=== PATIENT | male | born 1940 | race Caucasian/White ===

== ENCOUNTER 2022-11-24 | Outpatient (REF) | payer MEDICARE, SELFPAY | END 2022-11-24 00:01 | disposition home or self-care (01) | LOC: CF | PROVIDERS: Visit Provider Nurse Practitioner Family | DX: J44.9 Chronic obstructive pulmonary disease, unspecified (principal); I48.91 Unspecified atrial fibrillation; R06.09 Other forms of dyspnea; Z85.118 Personal history of other malignant neoplasm of bronchus and lung; Z79.01 Long term (current) use of anticoagulants; Z87.891 Personal history of nicotine dependence; Z79.899 Other long term (current) drug therapy | CPT/HCPCS: 99202 ==

== ENCOUNTER 2022-11-24 08:37 | Outpatient (AMB) | payer MEDICARE, SELFPAY ==
--- NOTE | 2022-11-24 08:40 | MHC.OFFVIS ---
Intake Vital Signs 11/24/22 08:44 Height 5 ft 9 in Weight 185 lb BMI 27.3 BP 134/68 Blood Pressure Location Rt brachial Position Sitting Pulse 82 Pulse Source Pulse Oximeter Pulse Oximetry (%) 97 Oxygen Delivery Method Room Air Intake Visit Reasons: Cough Air Transportation Provider Required: No Information Interpreted: non-clinical & clinical Food Service Supervisor: Food Service Supervisor offered & declined Accompanied by: Self / Same As Patient Allergies No Known Allergies Allergy (Verified 11/24/22 08:47) Medication List - Last Reconciled 11/24/22 by Mechelle Rudd LPN apixaban (Eliquis) 5 mg PO BID atorvastatin 20 mg PO DAILY cetirizine 10 mg PO DAILY PRN donepezil 10 mg PO BEDTIME fluticasone propionate 50 mcg/actuation 1 spray intranasal Q12H PRN furosemide 20 mg PO DAILY loratadine (Claritin) 10 mg PO DAILY metoprolol tartrate 50 mg PO BID HPI Cough HPI Details Alvin is a pleasant 82 year old male, former smoker with approximately 120+ pack year history, quit 30 years ago, with underlying history of COPD, 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 He was referred by PCP for pulmonary evaluation. He reports dyspnea with moderate exertion, wheezing, and productive cough with white sputum. He also reports that his hears him wheezing. He is not on any maintenance inhalers, only using intranasal sprays for allergic rhinitis. He denies any childhood asthma and is unsure of family history regarding lung conditions. 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 He denies any recent PFT. [facility] Social History (Updated 11/24/22 @ 08:48 by Mechelle Rudd LPN) Patient Tobacco Use Status: Former Tobacco user Tobacco use type: Cigarette Cigarette Packs Per Day: 3 Years Smoked: 40 Smoked in Last 30 Days: No Review of Systems Const Denies chills, Denies excessive sweating, Denies fever(s), Denies headache(s) and Denies night sweats Eyes Denies dry eyes, Denies irritation and Denies itchy eyes ENT Reports Normal hearing present, Denies headache(s), Denies post nasal drip and Denies sore throat Card Denies chest pain, Denies chest pain at rest, Denies chest pain with activity, Denies claudication, Denies leg edema, Denies orthopnea and Denies paroxysmal nocturnal dyspnea Resp Denies chest congestion, Denies excessive phlegm production, Denies pain on inspiration, Denies pain with cough and Denies stridor Musc Denies myalgias Neuro Reports Normal hearing present and Denies headache(s) Endo Denies excessive sweating Barry/Lymph Denies lymphadenopathy Aller/Immun Denies itchy eyes Physical Exam Vital Signs: Last Vital Signs Pulse 82 11/24/22 08:44 BP 134/68 11/24/22 08:44 Pulse Ox 97 11/24/22 08:44 Oxygen Delivery Method Room Air 11/24/22 08:44 BMI result Body Mass Index 27.3 Const General: cooperative, healthy appearing, comfortable, no acute distress, well developed and alert Limitations: no limitations HEENT Head: Yes normal to inspection, Yes normocephalic and Yes atraumatic Ears: hearing grossly normal bilaterally and external ears normal Eyes General: appearance normal, both eyes and all related structures Eyelids: Yes eyelids normal Sclerae: sclerae normal EOM: EOMs intact bilaterally Neck Neck: Yes normal visual inspection and Yes no lymphadenopathy Lymphatic: no lymphadenopathy noted Chest Chest palpation & inspection: normal inspection of the chest Resp Effort & Inspection: normal respiratory effort, able to speak in complete sentences, no audible wheezes, no cough, no stridor, not tachypneic, no tripod positioning and no use of accessory muscles Auscultation: no wheezes and diminished lung sounds Cardio Jugular venous distension: no JVD Rate: regular rate Skin Other: warm, dry General skin exam: no rashes or lesions noted Neuro Cranial nerves: Yes Normal hearing present Cognition (Neuro): normal cognition Gait exam (Neuro): Normal gait present Extrem General: Yes normal to inspection, Yes capillary refill normal, Yes no clubbing, cyanosis or edema and Yes no pedal edema Psych Appearance: grossly normal and well kempt Speech and movement: Normal speech and movement present and Clear speech present Affect: normal affect Attitude: cooperative Thought process: Normal thought process present Thought content: Normal thought content present Insight: Good insight present (Psych) Judgement: Good judgement present (Psych) Assessment & Plan Assessment & Plan (1) COPD (chronic obstructive pulmonary disease): Code(s): J44.9 - Chronic obstructive pulmonary disease, unspecified (2) Dyspnea on exertion: Code(s): R06.09 - Other forms of dyspnea (3) 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 Patient poor historian. Will schedule PFT to thoroughly assess and empirically trial Breo. Patient is aware to contact the office if inhaler is not approved by insurance. Inhaler technique and importance of oral hygiene reviewed. Will also schedule chest CT with prior history of lung cancer. All questions were answered and patient is in agreement of plan. Will follow up to review results and response to Breo. 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
[2022-11-24 08:44] VITALS: BP 134/68; PULSE 82; O2SAT 97; BMI 27.3
== END 2022-11-24 10:09 | disposition home or self-care (01) ==
LOC: HO.HPSW 08:37
PROVIDERS: PCP Nurse Practitioner Primary Care; Referring Provider Nurse Practitioner Primary Care; Visit Provider Nurse Practitioner Family
DX: J44.9 Chronic obstructive pulmonary disease, unspecified (principal); R06.09 Other forms of dyspnea; C34.12 Malignant neoplasm of upper lobe, left bronchus or lung
CPT/HCPCS: 99202; 99204

== ENCOUNTER 2022-12-26 08:29 | Outpatient (REF) | payer MEDICARE, SELFPAY ==
--- NOTE | ~2022-12-26 | CT_ITS ---
EXAMINATION: CT CHEST WITHOUT CONTRAST CLINICAL INFORMATION: Neoplasm of left upper lobe. COMPARISON: None available. TECHNIQUE: Multidetector volumetric CT imaging of the chest was done. Axial MIP volume rendering provided. Sagittal and coronal reformatted images were obtained. This CT examination was performed using dose optimization techniques as appropriate, variously including the following: *Automated exposure control *Adjustment of mA and/or kV according to patient size (this includes techniques or standardized protocols for targeted exams where dose is matched to indication/reason for exam; i.e. extremities or head) *Use of iterative reconstruction technique DLP: 154 mGy-cm FINDINGS: MEMBER SERVICES REPRESENTATIVE: The lungs are well-expanded and grossly clear. There is blunting of the left lateral costophrenic angle. There is left base scar/subsegmental atelectasis. LUNGS: There has been a prior left upper lobectomy. There are very mild paraseptal emphysematous changes, most pronounced at the right apex. There is right apical pleural and parenchymal scarring. There is left basilar pleural and parenchymal scarring. There is a benign, calcified granuloma seen within the posterior segment of the right upper lobe. No noncalcified nodule, mass, infiltrate or groundglass opacity is seen. There is no generalized increase in peripheral interlobular septal markings. No generalized small airway thickening is seen. The central airways appear patent. MEDIASTINUM: The thyroid is unremarkable. There is no thoracic aortic aneurysm. There are moderate atherosclerotic calcifications of the thoracic aortic arch. Within the prevascular region (4:14), a 1.3 x 0.8 cm lymph node is seen. There are shotty calcified bilateral hilar lymph nodes, consistent with chronic granulomatous disease. No sizable mediastinal or bilateral hilar lymphadenopathy is seen. CORONARY ARTERY CALCIFICATION: Moderate. PLEURA: There are small bilateral pleural effusions. No pleural mass or thickening. AXILLA: No lymphadenopathy. UPPER ABDOMEN: There are upper abdominal postoperative changes. A diminutive spleen or residual splenule is incidentally noted. The adrenal glands are unremarkable. OSSEOUS STRUCTURES: There is multi-level marked thoracolumbar anterior spondylosis, with an appearance suggesting DISH (diffuse idiopathic skeletal hyperostosis). No acute or aggressive osseous abnormality is seen. CT/CT chest wo IV con IMPRESSION: There are postoperative changes consistent with a prior left upper lobectomy. No thoracic metastasis or lymphadenopathy is seen. There are findings consistent with chronic granulomatous disease and paraseptal emphysema. There are small bilateral pleural effusions. No aggressive osseous lesion is seen. Fleischner guidelines were followed.
== END 2022-12-26 08:30 | disposition home or self-care (01) ==
LOC: HO.CT 08:29
PROVIDERS: PCP Internal Medicine; Visit Provider Nurse Practitioner Family
DX: C34.12 Malignant neoplasm of upper lobe, left bronchus or lung (principal)
CPT/HCPCS: 71250

== ENCOUNTER 2023-01-02 07:56 | Outpatient (REF) | payer MEDICARE, SELFPAY ==
--- NOTE | 2023-01-02 08:44 | PFT_ITS ---
Forced vital capacity 93%. FEV1 67%. FEV1/FVC ratio is 53. [id number] 26% and MVV 54%. Post bronchodilator therapy, there is no significant change. Lung volumes; total lung capacity 89%, residual volume 99%. Diffusion capacity 88%. CONCLUSION: Obstructive airway disorder, moderately severe. No significant response to bronchodilator therapy. Clinical correlation recommended. Cordell Aviles MD MSB/MODL / [phone]
== END 2023-01-02 07:57 | disposition home or self-care (01) ==
LOC: HO.RESP 07:56
PROVIDERS: PCP Internal Medicine; Visit Provider Nurse Practitioner Family
DX: J44.9 Chronic obstructive pulmonary disease, unspecified (principal)
CPT/HCPCS: 94010; 94727; 94729

== ENCOUNTER → 2023-01-02 08:44 | Outpatient (BNV) | payer MEDICARE, SELFPAY | PROVIDERS: PCP Internal Medicine; Visit Provider Internal Medicine | DX: J44.9 Chronic obstructive pulmonary disease, unspecified (principal) | CPT/HCPCS: 94060; 94727; 94729 ==

== ENCOUNTER 2023-01-14 13:54 | Outpatient (AMB) | payer MEDICARE, SELFPAY ==
[2023-01-14 13:58] VITALS: BP 132/72; PULSE 78; O2SAT 97; BMI 27.8
--- NOTE | 2023-01-14 13:58 | A.OFFVIS_ITS ---
Intake Vital Signs 3 01/14/23 13:58 Height 5 ft 9 in Weight 188 lb BMI 27.8 BP 132/72 Blood Pressure Location Rt brachial Position Sitting Pulse 78 Pulse Source Pulse Oximeter Pulse Oximetry (%) 97 Oxygen Delivery Method Room Air Intake Visit Reasons: follow up on pft Supervisor Lending Activities Required: No Client Support Associate: Client Support Associate offered & declined Accompanied by: Self / Same As Patient Allergies No Known Allergies Allergy (Verified 01/14/23 14:05) Medication List - Last Reconciled 01/14/23 by Mechelle Rudd LPN apixaban (Eliquis) 5 mg PO BID atorvastatin 20 mg PO DAILY cetirizine 10 mg PO DAILY PRN donepezil 10 mg PO BEDTIME fluticasone furoate-vilanterol 100-25 mcg/dose (Breo Ellipta) 1 inh inhalation DAILY fluticasone propionate 50 mcg/actuation 1 spray intranasal Q12H PRN furosemide 20 mg PO DAILY loratadine (Claritin) 10 mg PO DAILY metoprolol tartrate 50 mg PO BID HPI follow up on pft 2 HPI0 Details Alvin is a pleasant 82 year old male, former smoker with approximately 120+ pack year history, quit 30 years ago, with underlying history of COPD, 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 Today he presents to review chest CT, PFT and response to Breo. He continues to report suboptimal control with Breo, although has had improvements in dyspnea and wheezing. He also continues to report persistent rhinitis. [facility] Social History (Updated 01/14/23 @ 14:08 by Mechelle Rudd LPN) Patient Tobacco Use Status: Former Tobacco user Tobacco use type: Cigarette Cigarette Packs Per Day: 3 Years Smoked: 40 Smoked in Last 30 Days: No Review of Systems Const Denies chills, Denies excessive sweating, Denies fever(s), Denies headache(s) and Denies night sweats Eyes Denies dry eyes, Denies irritation and Denies itchy eyes ENT Reports Normal hearing present, Denies headache(s), Denies post nasal drip and Denies sore throat Card Denies chest pain, Denies chest pain at rest, Denies chest pain with activity, Denies claudication, Denies leg edema, Denies orthopnea and Denies paroxysmal nocturnal dyspnea Resp Denies chest congestion, Denies excessive phlegm production, Denies pain on inspiration, Denies pain with cough and Denies stridor Musc Denies myalgias Neuro Reports Normal hearing present and Denies headache(s) Endo Denies excessive sweating Barry/Lymph Denies lymphadenopathy Aller/Immun Denies itchy eyes Physical Exam Vital Signs: Last Vital Signs Pulse 78 01/14/23 13:58 BP 132/72 01/14/23 13:58 Pulse Ox 97 01/14/23 13:58 Oxygen Delivery Method Room Air 01/14/23 13:58 BMI result Body Mass Index 27.8 Const General: cooperative, healthy appearing, comfortable, no acute distress, well developed and alert HEENT Head: Yes normal to inspection, Yes normocephalic and Yes atraumatic Ears: hearing grossly normal bilaterally and external ears normal Eyes General: appearance normal, both eyes and all related structures Eyelids: Yes eyelids normal Sclerae: sclerae normal EOM: EOMs intact bilaterally Neck Neck: Yes normal visual inspection and Yes no lymphadenopathy Lymphatic: no lymphadenopathy noted Chest Chest palpation & inspection: normal inspection of the chest Resp Effort & Inspection: normal respiratory effort, able to speak in complete sentences, no audible wheezes, no cough, no stridor, not tachypneic, no tripod positioning and no use of accessory muscles Auscultation: no wheezes and diminished lung sounds Cardio Jugular venous distension: no JVD Rate: regular rate Skin Other: warm, dry General skin exam: no rashes or lesions noted Neuro Cranial nerves: Yes Normal hearing present Cognition (Neuro): normal cognition Gait exam (Neuro): Normal gait present Extrem General: Yes normal to inspection, Yes capillary refill normal, Yes no clubbing, cyanosis or edema and Yes no pedal edema Psych Appearance: grossly normal and well kempt Speech and movement: Normal speech and movement present and Clear speech present Affect: normal affect Attitude: cooperative Thought process: Normal thought process present Thought content: Normal thought content present Insight: Good insight present (Psych) Judgement: Good judgement present (Psych) Results Reviewed Results Reviewed: [address] [address] [address] Scan Report Signed Patient: Alvin Aguirre MR#: [id number] : 1940 Acct:[id number] Age/Sex: 82 / M ADM Date: 12/26/22 Loc: HO.CT Attending Dr: Angie Hansen NP Ordering Physician: Angie Hansen NP Date of Service: 12/26/22 Procedure(s): CT chest wo IV con Accession Number(s): [id number] cc: Edd Hollingsworth MD; Angie Hansen NP~ EXAMINATION: CT CHEST WITHOUT CONTRAST CLINICAL INFORMATION: Neoplasm of left upper lobe. COMPARISON: None available. TECHNIQUE: Multidetector volumetric CT imaging of the chest was done. Axial MIP volume rendering provided. Sagittal and coronal reformatted images were obtained. This CT examination was performed using dose optimization techniques as appropriate, variously including the following: *Automated exposure control *Adjustment of mA and/or kV according to patient size (this includes techniques or standardized protocols for targeted exams where dose is matched to indication/reason for exam; i.e. extremities or head) *Use of iterative reconstruction technique DLP: 154 mGy-cm FINDINGS: MEDICAL LEADER: The lungs are well-expanded and grossly clear. There is blunting of the left lateral costophrenic angle. There is left base scar/subsegmental atelectasis. LUNGS: There has been a prior left upper lobectomy. There are very mild paraseptal emphysematous changes, most pronounced at the right apex. There is right apical pleural and parenchymal scarring. There is left basilar pleural and parenchymal scarring. There is a benign, calcified granuloma seen within the posterior segment of the right upper lobe. No noncalcified nodule, mass, infiltrate or groundglass opacity is seen. There is no generalized increase in peripheral interlobular septal markings. No generalized small airway thickening is seen. The central airways appear patent. MEDIASTINUM: The thyroid is unremarkable. There is no thoracic aortic aneurysm. There are moderate atherosclerotic calcifications of the thoracic aortic arch. Within the prevascular region (4:14), a 1.3 x 0.8 cm lymph node is seen. There are shotty calcified bilateral hilar lymph nodes, consistent with chronic granulomatous disease. No sizable mediastinal or bilateral hilar lymphadenopathy is seen. CORONARY ARTERY CALCIFICATION: Moderate. PLEURA: There are small bilateral pleural effusions. No pleural mass or thickening. AXILLA: No lymphadenopathy. UPPER ABDOMEN: There are upper abdominal postoperative changes. A diminutive spleen or residual splenule is incidentally noted. The adrenal glands are unremarkable. OSSEOUS STRUCTURES: There is multi-level marked thoracolumbar anterior spondylosis, with an appearance suggesting DISH (diffuse idiopathic skeletal hyperostosis). No acute or aggressive osseous abnormality is seen. CT/CT chest wo IV con IMPRESSION: There are postoperative changes consistent with a prior left upper lobectomy. No thoracic metastasis or lymphadenopathy is seen. There are findings consistent with chronic granulomatous disease and paraseptal emphysema. There are small bilateral pleural effusions. No aggressive osseous lesion is seen. Fleischner guidelines were followed. 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 Reviewed PFT which revealed moderate to sever obstructive defect without significant response to bronchodilator. DLCO and lung volumes within normal limits. Patient had notable improvements with Breo but symptoms of dyspnea persist. Will switch to Trelegy. He also noted significant rhinitis, will trial ipratropium. All questions were answered and patient is in agreement of plan. Will follow up in three months or sooner if needed. 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
== END 2023-01-14 14:32 | disposition home or self-care (01) ==
LOC: HO.HPSW 13:54
PROVIDERS: PCP Internal Medicine; Visit Provider Nurse Practitioner Family
DX: J44.9 Chronic obstructive pulmonary disease, unspecified (principal); R06.09 Other forms of dyspnea; C34.12 Malignant neoplasm of upper lobe, left bronchus or lung; J30.9 Allergic rhinitis, unspecified
CPT/HCPCS: 99214

== ENCOUNTER → 2023-01-14 13:54 | Outpatient (BNVA) | payer MEDICARE, SELFPAY | PROVIDERS: PCP Internal Medicine; Visit Provider Nurse Practitioner Family | DX: J44.9 Chronic obstructive pulmonary disease, unspecified (principal); J30.9 Allergic rhinitis, unspecified; R06.09 Other forms of dyspnea; C34.12 Malignant neoplasm of upper lobe, left bronchus or lung | CPT/HCPCS: 99212 ==

== ENCOUNTER 2023-04-22 09:01 | Outpatient (AMB) | payer MEDICARE, SELFPAY ==
[2023-04-22 09:05] VITALS: BP 128/74; PULSE 92; O2SAT 97; BMI 27.0
--- NOTE | 2023-04-22 09:05 | A.OFFVIS_ITS ---
Intake Vital Signs 04/22/23 09:05 Height 5 ft 9 in Weight 183 lb BMI 27.0 BP 128/74 Blood Pressure Location Lt brachial Position Sitting Pulse 92 Pulse Source Pulse Oximeter Pulse Oximetry (%) 97 Oxygen Delivery Method Room Air Intake Visit Reasons: cough Cell Tuber Machine Required: No Life Skills Coach: Life Skills Coach offered & declined Accompanied by: Self / Same As Patient Allergies No Known Allergies Allergy (Verified 04/22/23 09:08) Medication List - Last Reconciled 04/22/23 by Mechelle Rudd LPN apixaban (Eliquis) 5 mg PO BID atorvastatin 20 mg PO DAILY cetirizine 10 mg PO DAILY PRN donepezil 10 mg PO BEDTIME fluticasone propionate 50 mcg/actuation 1 spray intranasal Q12H PRN aaztlzbuyht-ahictojni-kdvhdrxn 200-62.5-25 mcg (Trelegy Ellipta) 1 inh inhalation DAILY furosemide 20 mg PO DAILY ipratropium bromide 2 sprays intranasal BID loratadine (Claritin) 10 mg PO DAILY metoprolol tartrate 50 mg PO BID HPI cough HPI Details Alvin is a pleasant 82 year old male, former smoker with approximately 120+ pack year history, quit 30 years ago, with underlying history of COPD, 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 At the last visit, he was switched from Breo to Trelegy with significant improvement in symptoms. He denies overt dyspnea on exertion. He denies cough, wheezing or chest tightness. [facility], [facility] Social History (Updated 04/22/23 @ 09:09 by Mechelle Rudd LPN) Patient Tobacco Use Status: Former Tobacco user Tobacco use type: Cigarette Cigarette Packs Per Day: 3 Years Smoked: 40 Smoked in Last 30 Days: No Review of Systems Const Denies chills, Denies excessive sweating, Denies fever(s), Denies headache(s) and Denies night sweats Eyes Denies dry eyes ENT Reports Normal hearing present, Denies headache(s) and Denies sore throat Card Denies chest pain, Denies chest pain at rest, Denies chest pain with activity, Denies claudication, Denies leg edema, Denies orthopnea and Denies paroxysmal nocturnal dyspnea Resp Denies chest congestion, Denies excessive phlegm production, Denies pain on inspiration, Denies pain with cough and Denies stridor Musc Denies myalgias Neuro Reports Normal hearing present and Denies headache(s) Endo Denies excessive sweating Barry/Lymph Denies lymphadenopathy Physical Exam Vital Signs: Last Vital Signs Pulse 92 04/22/23 09:05 BP 128/74 04/22/23 09:05 Pulse Ox 97 04/22/23 09:05 Oxygen Delivery Method Room Air 04/22/23 09:05 BMI result Body Mass Index 27.0 Const General: cooperative, healthy appearing, comfortable, no acute distress, well developed and alert HEENT Head: Yes normal to inspection, Yes normocephalic and Yes atraumatic Ears: hearing grossly normal bilaterally and external ears normal Eyes General: appearance normal, both eyes and all related structures Eyelids: Yes eyelids normal Sclerae: sclerae normal EOM: EOMs intact bilaterally Neck Neck: Yes normal visual inspection and Yes no lymphadenopathy Lymphatic: no lymphadenopathy noted Chest Chest palpation & inspection: normal inspection of the chest Resp Effort & Inspection: normal respiratory effort, able to speak in complete sentences, no audible wheezes, no cough, no stridor, not tachypneic, no tripod positioning and no use of accessory muscles Auscultation: clear to auscultation bilaterally and no wheezes Cardio Jugular venous distension: no JVD Rate: regular rate Skin Other: warm, dry General skin exam: no rashes or lesions noted Neuro Cranial nerves: Yes Normal hearing present Cognition (Neuro): normal cognition Gait exam (Neuro): Normal gait present Extrem General: Yes normal to inspection, Yes capillary refill normal, Yes no clubbing, cyanosis or edema and Yes no pedal edema Psych Appearance: grossly normal and well kempt Speech and movement: Normal speech and movement present and Clear speech present Affect: normal affect Attitude: cooperative Thought process: Normal thought process present Thought content: Normal thought content present Insight: Good insight present (Psych) Judgement: Good judgement present (Psych) Assessment & Plan Assessment & Plan (1) COPD (chronic obstructive pulmonary disease): Code(s): J44.9 - Chronic obstructive pulmonary disease, unspecified (2) Dyspnea on exertion: Code(s): R06.09 - Other forms of dyspnea (3) 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 His main concern was allergic rhinitis and allergic conjunctivitis, advised to increase ipratropium for the next few weeks to BID, and see if symptoms improve. Also recommended trialing antihistamine eyedrops. Denies history of glaucoma. All questions were answered and patient is in agreement of plan. Will follow up in six months or sooner if needed. 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
== END 2023-04-22 09:23 | disposition home or self-care (01) ==
PROVIDERS: PCP Internal Medicine; Visit Provider Nurse Practitioner Family
DX: J44.9 Chronic obstructive pulmonary disease, unspecified (principal); R06.09 Other forms of dyspnea; C34.12 Malignant neoplasm of upper lobe, left bronchus or lung; J30.9 Allergic rhinitis, unspecified
CPT/HCPCS: 99213

== ENCOUNTER → 2023-04-22 09:01 | Outpatient (BNVA) | payer MEDICARE, SELFPAY | PROVIDERS: PCP Internal Medicine; Visit Provider Nurse Practitioner Family | DX: J44.9 Chronic obstructive pulmonary disease, unspecified (principal); J30.9 Allergic rhinitis, unspecified; C34.12 Malignant neoplasm of upper lobe, left bronchus or lung; R06.09 Other forms of dyspnea | CPT/HCPCS: 99212 ==

== ENCOUNTER 2023-08-04 14:45 | Outpatient (AMB) | payer MEDICARE, SELFPAY ==
[2023-08-04 14:51] VITALS: BP 102/56; PULSE 86; O2SAT 96; BMI 26.6
--- NOTE | 2023-08-04 14:51 | MHC.OFFVIS ---
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 He reports good control on Trelegy. Today he presents for an acute visit. He reports developing dyspnea on exertion, wheezing and productive cough with tenacious childs colored sputum for the past few days that is worsening. He denies any fevers, chills or sick contacts. [facility] Social History Patient Tobacco Use Status: Former Tobacco user Tobacco use type: Cigarette Cigarette Packs Per Day: 3 Years Smoked: 40 Review of Systems Const Denies chills, Denies excessive sweating, Denies fever(s), Denies headache(s) and Denies night sweats Eyes Denies dry eyes, Denies irritation and Denies itchy eyes ENT Reports Normal hearing present, Denies headache(s), Denies nasal congestion, Denies nasal discharge, Denies post nasal drip and Denies sore throat Card Denies chest pain, Denies chest pain at rest, Denies chest pain with activity, Denies claudication, Denies leg edema, Denies orthopnea and Denies paroxysmal nocturnal dyspnea Resp Denies excessive phlegm production, Denies pain on inspiration, Denies pain with cough and Denies stridor Musc Denies myalgias Neuro Reports Normal hearing present and Denies headache(s) Endo Denies excessive sweating Barry/Lymph Denies lymphadenopathy Aller/Immun Denies itchy eyes and Denies seasonal rhinorrhea Physical Exam Vital Signs: Last Vital Signs Pulse 86 08/04/23 14:51 BP 102/56 L 08/04/23 14:51 Pulse Ox 96 08/04/23 14:51 Oxygen Delivery Method Room Air 08/04/23 14:51 BMI result Body Mass Index 26.6 Const General: cooperative, healthy appearing, comfortable, no acute distress, well developed and alert Nutritional Appearance: obese Orientation/consciousness: patient oriented x3 Limitations: no limitations HEENT Head: Yes normal to inspection, Yes normocephalic and Yes atraumatic Ears: hearing grossly normal bilaterally and external ears normal Eyes General: appearance normal, both eyes and all related structures Eyelids: Yes eyelids normal Sclerae: sclerae normal EOM: EOMs intact bilaterally Neck Neck: Yes normal visual inspection and Yes no lymphadenopathy Lymphatic: no lymphadenopathy noted Chest Chest palpation & inspection: normal inspection of the chest Resp Other: diminished sounds throughout, improved with duoneb Effort & Inspection: normal respiratory effort, able to speak in complete sentences, no audible wheezes, Actively coughing Quality: wet, no stridor, not tachypneic, no tripod positioning and no use of accessory muscles Cardio Jugular venous distension: no JVD Rate: regular rate Rhythm: regular rhythm Skin Other: warm, dry General skin exam: no rashes or lesions noted Neuro General: patient oriented x3 Cranial nerves: Yes Normal hearing present Cognition (Neuro): normal cognition Gait exam (Neuro): Normal gait present Extrem General: Yes normal to inspection, Yes capillary refill normal, Yes no clubbing, cyanosis or edema and Yes no pedal edema Psych Appearance: grossly normal and well kempt Speech and movement: Normal speech and movement present and Clear speech present Affect: normal affect Attitude: cooperative Thought process: Normal thought process present Thought content: Normal thought content present Insight: Good insight present (Psych) Judgement: Good judgement present (Psych) Office Procedures Nebulizer Treatment Nebulizer Treatment [id number]/[id number] RX initial, or Nebulizer Subsequent Treatment Office Meds ipratropium 0.5 mg-albuterol 3 mg (2.5 mg base)/3 mL nebulization ariane Performing Provider: Angie Hansen NP Performing Location: [facility] Administered by: Mechelle Rudd LPN on 08/04/23 15:14 Dose Route Admin Location Dispensed Lot Number Expiration Date [facility] [employer] 3 mL inhalation 3 mL [id number] 01/13/25 20465-155-95 [employer] Assessment & Plan Assessment & Plan (1) COPD (chronic obstructive pulmonary disease): Code(s): J44.9 - Chronic obstructive pulmonary disease, unspecified Category: Medical (2) Dyspnea on exertion: Code(s): R06.09 - Other forms of dyspnea Category: Medical (3) 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 On exam no wheezing appreciated, will hold off on prednisone at this time. Will send for CXR. If symptoms persist patient aware to call office and if worsen, seek emergent care. All questions were answered and patient is in agreement of plan. Will have close follow up 4 weeks or sooner if needed. 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
== END 2023-08-04 15:30 | disposition home or self-care (01) ==
PROVIDERS: PCP Internal Medicine; Visit Provider Nurse Practitioner Family
DX: J44.9 Chronic obstructive pulmonary disease, unspecified (principal); R06.09 Other forms of dyspnea; C34.12 Malignant neoplasm of upper lobe, left bronchus or lung; J30.9 Allergic rhinitis, unspecified
CPT/HCPCS: 99214

== ENCOUNTER → 2023-08-04 14:45 | Outpatient (BNVA) | payer MEDICARE, SELFPAY | PROVIDERS: PCP Internal Medicine; Visit Provider Nurse Practitioner Family | DX: J44.9 Chronic obstructive pulmonary disease, unspecified (principal); J30.9 Allergic rhinitis, unspecified; R06.09 Other forms of dyspnea; C34.12 Malignant neoplasm of upper lobe, left bronchus or lung | CPT/HCPCS: 94640; 99212 ==

== ENCOUNTER 2023-09-01 08:53 | Outpatient (AMB) | payer MEDICARE, SELFPAY ==
[2023-09-01 09:08] VITALS: BP 102/56; PULSE 72; O2SAT 97; BMI 26.4
--- NOTE | 2023-09-01 09:08 | A.OFFVIS_ITS ---
Vital Signs 09/01/23 09:08 Height 5 ft 9 in Weight 178 lb 8 oz BMI 26.4 BP 102/56 L Blood Pressure Location Lt brachial Position Sitting Pulse 72 Pulse Source Pulse Oximeter Pulse Oximetry (%) 97 Oxygen Delivery Method Room Air Intake Visit Reasons: cough Allergies No Known Allergies Allergy (Verified 09/01/23 09:10) HPI HPI cough: Details: Alvin is a pleasant 83 year old male, former smoker with approximately 120+ pack year history, quit 30 years ago, with underlying history of COPD, ma lignancy of the left upper lobe s/p lobectomy 2009, bladder carcinoma s/p TURBT, atrial fibrillation on eliquis and urticaria on dupixent 300 mg prescribed by dermatology. At the last visit he was treated with doxycycline for bronchitic symptoms. He did have worsening of symptoms shortly after he was evaluated in the office which she was instructed to seek emergent care. He was evaluated at [facility] and discharged on current regimen. These reports are not available today. Today he reports feeling back to baseline with moderate control on Trelegy. He reports occasional productive cough with white sputum and dyspnea with moderate exertion. He denies chest tightness or wheezing. [facility] Social History Patient Tobacco Use Status: Former Tobacco user Tobacco use type: Cigarette Cigarette Packs Per Day: 3 Years Smoked: 40 Review of Systems Const Denies chills, Denies excessive sweating, Denies fever(s), Denies headache(s) and Denies night sweats Eyes Denies dry eyes, Denies irritation and Denies itchy eyes ENT Reports Normal hearing present, Denies headache(s), Denies nasal congestion, Denies nasal discharge, Denies post nasal drip and Denies sore throat Card Denies chest pain, Denies chest pain at rest, Denies chest pain with activity, Denies claudication, Denies leg edema, Denies orthopnea and Denies paroxysmal nocturnal dyspnea Resp Denies chest congestion, Denies excessive phlegm production, Denies pain on inspiration, Denies pain with cough, Denies stridor and Denies wheezing Musc Denies myalgias Neuro Reports Normal hearing present and Denies headache(s) Endo Denies excessive sweating Barry/Lymph Denies lymphadenopathy Aller/Immun Denies itchy eyes, Denies seasonal rhinorrhea and Denies wheezing Physical Exam Vital Signs: Last Vital Signs Pulse 72 09/01/23 09:08 BP 102/56 L 09/01/23 09:08 Pulse Ox 97 09/01/23 09:08 Oxygen Delivery Method Room Air 09/01/23 09:08 BMI result Body Mass Index 26.4 Const General: cooperative, healthy appearing, comfortable, no acute distress, well developed and alert Orientation/consciousness: patient oriented x3 Limitations: no limitations HEENT Head: Yes normal to inspection, Yes normocephalic and Yes atraumatic Ears: hearing grossly normal bilaterally and external ears normal Eyes General: appearance normal, both eyes and all related structures Eyelids: Yes eyelids normal Sclerae: sclerae normal EOM: EOMs intact bilaterally Neck Neck: Yes normal visual inspection and Yes no lymphadenopathy Lymphatic: no lymphadenopathy noted Chest Chest palpation & inspection: normal inspection of the chest Resp Effort & Inspection: normal respiratory effort, able to speak in complete sentences, no audible wheezes, no cough, no stridor, not tachypneic, no tripod positioning and no use of accessory muscles Auscultation: clear to auscultation bilaterally Cardio Jugular venous distension: no JVD Rate: regular rate Rhythm: regular rhythm Skin Other: warm, dry General skin exam: no rashes or lesions noted Neuro General: patient oriented x3 Cranial nerves: Yes Normal hearing present Cognition (Neuro): normal cognition Gait exam (Neuro): Normal gait present Extrem General: Yes normal to inspection, Yes capillary refill normal, Yes no clubbing, cyanosis or edema and Yes no pedal edema Psych Appearance: grossly normal and well kempt Speech and movement: Normal speech and movement present and Clear speech present Affect: normal affect Attitude: cooperative Thought process: Normal thought process present Thought content: Normal thought content present Insight: Good insight present (Psych) Judgement: Good judgement present (Psych) Assessment & Plan Assessment & Plan (1) COPD (chronic obstructive pulmonary disease): Code(s): J44.9 - Chronic obstructive pulmonary disease, unspecified Category: Medical (2) Dyspnea on exertion: Code(s): R06.09 - Other forms of dyspnea Category: Medical (3) 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 Will send in refills. He reports feeling back to baseline however is aware to call the office if bronchitic symptoms return. [facility] have [facility] sign [facility] All questions were answered and patient is in agreement of plan. Will follow up in 3 months or sooner if needed. 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
== END 2023-09-01 09:20 | disposition home or self-care (01) ==
PROVIDERS: PCP Internal Medicine; Visit Provider Nurse Practitioner Family
DX: J44.9 Chronic obstructive pulmonary disease, unspecified (principal); R06.09 Other forms of dyspnea; C34.12 Malignant neoplasm of upper lobe, left bronchus or lung; J30.9 Allergic rhinitis, unspecified
CPT/HCPCS: 99214

== ENCOUNTER → 2023-09-01 08:53 | Outpatient (BNVA) | payer MEDICARE, SELFPAY | PROVIDERS: PCP Internal Medicine; Visit Provider Nurse Practitioner Family | DX: J44.9 Chronic obstructive pulmonary disease, unspecified (principal); R06.09 Other forms of dyspnea; J30.9 Allergic rhinitis, unspecified; Z85.118 Personal history of other malignant neoplasm of bronchus and lung; Z90.2 Acquired absence of lung [part of] | CPT/HCPCS: 99212 ==

== ENCOUNTER 2023-12-02 10:31 | Outpatient (AMB) | payer MEDICARE, SELFPAY ==
--- NOTE | 2023-12-02 10:33 | MHC.OFFVIS ---
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 He reports good control of respiratory symptoms with Trelegy at this time. Denies any cough, wheezing, chest tightness or dyspnea. He denies any visits to urgent care or hospitalizations since the last visit. [facility] Social History (Reviewed 12/02/23 @ 10:36 by Brooke Elizalde [facility]) Patient Tobacco Use Status: Former Tobacco user Tobacco use type: Cigarette Cigarette Packs Per Day: 3 Years Smoked: 40 Review of Systems Const Denies chills, Denies excessive sweating, Denies fever(s), Denies headache(s) and Denies night sweats Eyes Denies dry eyes, Denies irritation and Denies itchy eyes ENT Reports Normal hearing present, Denies headache(s), Denies nasal congestion, Denies nasal discharge, Denies post nasal drip and Denies sore throat Card Denies chest pain, Denies chest pain at rest, Denies chest pain with activity, Denies claudication, Denies leg edema, Denies dyspnea, Denies dyspnea on exertion, Denies orthopnea and Denies paroxysmal nocturnal dyspnea Resp Denies chest congestion, Denies cough, Denies excessive phlegm production, Denies pain on inspiration, Denies pain with cough, Denies dyspnea, Denies dyspnea on exertion, Denies stridor and Denies wheezing Musc Denies myalgias Neuro Reports Normal hearing present and Denies headache(s) Endo Denies excessive sweating Barry/Lymph Denies lymphadenopathy Aller/Immun Denies itchy eyes, Denies seasonal rhinorrhea and Denies wheezing Physical Exam Vital Signs: Last Vital Signs Pulse 87 12/02/23 10:34 BP 98/54 L 12/02/23 10:34 Pulse Ox 97 12/02/23 10:34 Oxygen Delivery Method Room Air 12/02/23 10:34 BMI result Body Mass Index 26.7 Const General: cooperative, healthy appearing, comfortable, no acute distress, well developed and alert Orientation/consciousness: patient oriented x3 Limitations: no limitations HEENT Head: Yes normal to inspection, Yes normocephalic and Yes atraumatic Ears: hearing grossly normal bilaterally and external ears normal Eyes General: appearance normal, both eyes and all related structures Eyelids: Yes eyelids normal Sclerae: sclerae normal EOM: EOMs intact bilaterally Neck Neck: Yes normal visual inspection and Yes no lymphadenopathy Lymphatic: no lymphadenopathy noted Chest Chest palpation & inspection: normal inspection of the chest Resp Effort & Inspection: normal respiratory effort, able to speak in complete sentences, no audible wheezes, no cough, no stridor, not tachypneic, no tripod positioning and no use of accessory muscles Auscultation: clear to auscultation bilaterally Cardio Jugular venous distension: no JVD Rate: regular rate Rhythm: regular rhythm Skin Other: warm, dry General skin exam: no rashes or lesions noted Neuro General: patient oriented x3 Cranial nerves: Yes Normal hearing present Cognition (Neuro): normal cognition Gait exam (Neuro): Normal gait present Extrem General: Yes normal to inspection, Yes capillary refill normal, Yes no clubbing, cyanosis or edema and Yes no pedal edema Psych Appearance: grossly normal and well kempt Speech and movement: Normal speech and movement present and Clear speech present Affect: normal affect Attitude: cooperative Thought process: Normal thought process present Thought content: Normal thought content present Insight: Good insight present (Psych) Judgement: Good judgement present (Psych) Assessment & Plan Assessment & Plan (1) COPD (chronic obstructive pulmonary disease): Code(s): J44.9 - Chronic obstructive pulmonary disease, unspecified Category: Medical (2) 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 All questions were answered and patient is in agreement of plan. Will follow up in 3-6 months or sooner if needed. 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
[2023-12-02 10:34] VITALS: BP 98/54; PULSE 87; O2SAT 97; BMI 26.7
== END 2023-12-02 10:45 | disposition home or self-care (01) ==
PROVIDERS: PCP Internal Medicine; Visit Provider Nurse Practitioner Family
DX: J44.9 Chronic obstructive pulmonary disease, unspecified (principal); C34.12 Malignant neoplasm of upper lobe, left bronchus or lung; J30.9 Allergic rhinitis, unspecified
CPT/HCPCS: 99213

== ENCOUNTER → 2023-12-02 10:31 | Outpatient (BNVA) | payer MEDICARE, SELFPAY | PROVIDERS: PCP Internal Medicine; Visit Provider Nurse Practitioner Family | DX: J44.9 Chronic obstructive pulmonary disease, unspecified (principal); J30.9 Allergic rhinitis, unspecified; C34.12 Malignant neoplasm of upper lobe, left bronchus or lung; Z87.891 Personal history of nicotine dependence | CPT/HCPCS: 99212 ==

== ENCOUNTER 2024-05-31 09:32 | Outpatient (AMB) | payer MEDICARE, SELFPAY ==
--- NOTE | 2024-05-31 09:34 | MHC.OFFVIS ---
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 Allergies No Known Allergies Allergy (Verified 05/31/24 09:35) Medication List - Last Reconciled 05/31/24 by Ina Van, TRADE CLERK apixaban (Eliquis) 5 mg PO BID atorvastatin 20 mg PO DAILY cetirizine 10 mg PO DAILY PRN donepezil 10 mg PO BEDTIME doxycycline hyclate 100 mg PO BID fluticasone propionate 50 mcg/actuation 1 spray intranasal Q12H PRN [id number]-[id number] 200-62.5-25 mcg (Trelegy Ellipta) 1 ea PO DAILY furosemide 20 mg PO DAILY ipratropium bromide 2 sprays intranasal BID loratadine (Claritin) 10 mg PO DAILY metoprolol tartrate 50 mg PO BID HPI HPI cough: Details: Alvin is a pleasant 84 year old male, former smoker with approximately 120+ pack year history, quit 30 years ago, with underlying history of COPD, 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 Today he presents for a routine visit. He has been well controlled on Trelegy. Denies any cough, wheezing, chest tightness or dyspnea. He denies any visits to urgent care or hospitalizations since the last visit. Of note, he does report persistent rhinorrhea and post nasal drip that has been persistently worsening over the last year. [facility] Social History Patient Tobacco Use Status: Former Tobacco user Tobacco use type: Cigarette Cigarette Packs Per Day: 3 Years Smoked: 40 Review of Systems Const Denies chills, Denies excessive sweating, Denies fever(s), Denies headache(s) and Denies night sweats Eyes Denies dry eyes, Denies irritation and Denies itchy eyes ENT Reports Normal hearing present, Denies headache(s), Denies nasal congestion and Denies sore throat Card Denies chest pain, Denies chest pain at rest, Denies chest pain with activity, Denies claudication, Denies leg edema, Denies dyspnea, Denies dyspnea on exertion, Denies orthopnea and Denies paroxysmal nocturnal dyspnea Resp Denies chest congestion, Denies cough, Denies excessive phlegm production, Denies pain on inspiration, Denies pain with cough, Denies dyspnea, Denies dyspnea on exertion, Denies stridor and Denies wheezing Musc Denies myalgias Neuro Reports Normal hearing present and Denies headache(s) Endo Denies excessive sweating Barry/Lymph Denies lymphadenopathy Aller/Immun Denies itchy eyes, Denies seasonal rhinorrhea and Denies wheezing Physical Exam Vital Signs: Last Vital Signs Pulse 70 05/31/24 09:36 BP 132/70 05/31/24 09:36 Pulse Ox 97 05/31/24 09:36 Oxygen Delivery Method Room Air 05/31/24 09:36 BMI result Body Mass Index 26.9 Const General: cooperative, healthy appearing, comfortable, no acute distress, well developed and alert Orientation/consciousness: patient oriented x3 Limitations: no limitations HEENT Head: Yes normal to inspection, Yes normocephalic and Yes atraumatic Ears: hearing grossly normal bilaterally and external ears normal Eyes General: appearance normal, both eyes and all related structures Eyelids: Yes eyelids normal Sclerae: sclerae normal EOM: EOMs intact bilaterally Neck Neck: Yes normal visual inspection and Yes no lymphadenopathy Lymphatic: no lymphadenopathy noted Chest Chest palpation & inspection: normal inspection of the chest Resp Effort & Inspection: normal respiratory effort, able to speak in complete sentences, no audible wheezes, no cough, no stridor, not tachypneic, no tripod positioning and no use of accessory muscles Auscultation: clear to auscultation bilaterally Cardio Jugular venous distension: no JVD Rate: regular rate Rhythm: regular rhythm Skin Other: warm, dry General skin exam: no rashes or lesions noted Neuro General: patient oriented x3 Cranial nerves: Yes Normal hearing present Cognition (Neuro): normal cognition Gait exam (Neuro): Normal gait present Extrem General: Yes normal to inspection, Yes capillary refill normal, Yes no clubbing, cyanosis or edema and Yes no pedal edema Psych Appearance: grossly normal and well kempt Speech and movement: Normal speech and movement present and Clear speech present Affect: normal affect Attitude: cooperative Thought process: Normal thought process present Thought content: Normal thought content present Insight: Good insight present (Psych) Judgement: Good judgement present (Psych) Assessment & Plan Assessment & Plan (1) COPD (chronic obstructive pulmonary disease): Code(s): J44.9 - Chronic obstructive pulmonary disease, unspecified Category: Medical (2) 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 He does note chronic rhinitis, will send for RAST to further evaluate. Will empirically trial Azelastine nasal spray. All questions were answered and patient is in agreement of plan. Will follow up in 3 months or sooner if needed. Orders: Orders Complete Blood Count Auto Diff 05/31/24 Z91.09 - Other allergy status, other than to drugs and biological substances Immunoglobulin E 05/31/24 Z91.09 - Other allergy status, other than to drugs and biological substances Resp Allergy Profile Region I 05/31/24 Z91.09 - Other allergy status, other than to drugs and biological substances Medications: New azelastine administer into each nostril 1 spray intranasal BID 30 mL 0RF Coding Level of Care Code Est Pt Level 4 (92725) Diagnoses COPD (chronic obstructive pulmonary disease) J44.9 Cancer of bronchus of left upper lobe C34.12 Allergic rhinitis J30.9
[2024-05-31 09:36] VITALS: BP 132/70; PULSE 70; O2SAT 97; BMI 26.9
--- OUTSIDE RECORDS SUMMARY | 2024-05-31 10:24 | XMS_ITS | Clinical Summary ---
Author Organization LL [address] [place] [address] [place] [id number] Phone Care Team Providers Care Tube Room Supervisor Name Role Phone Fam De Paz MD Primary Care Provider Medications atorvastatin (LIPITOR) 20 mg tablet Take 1 Tablet by mouth daily. 2 Active donepeziL (ARICEPT) 5 mg tablet Take 1 Tablet by mouth at bedtime. 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 Resection in july of 2018. Visit with [facility] 11/16/2020: cystoscopy in office showing no evidence of recurrence. Urine sent for cytology/fish, and if negative f/u cystoscopy in 6 months. If +Biopsy of bladder, a CT scan will be recommended. BPH: with no urinary symptoms. No treatement indicated. Erosive esophagitis 10/08/2017 Overview (03/02/2024): Per EGD 07/2017 Memory problem 09/09/2016 Hearing aid worn 09/05/2014 Overview (03/02/2024): [facility] bilateral Alcohol dependence 05/05/2012 Cancer of lung 05/10/2010 Overview (03/02/2024): Dr Singh 04/2010, left upper lobectomy by Dr. 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 04/14/2006 Overview (03/02/2024): L HIP Encounters Date Type Department Care Team Description 03/30/2024 Lab Requisition [facility] - Main Lab [address] [facility] [place] [place] [address] lEijah Sykes MD Personal history of malignant neoplasm of bladder from Last 3 Months Immunizations Name Administration Dates Next Due H1N1 Inj Preservative Free 06/19/2009 Influenza trivalent, 0.5mL ( Fluzone High-dose) 65yo and older 01/06/2018,12/05/2015 Influenza trivalent, with pr eservative (Fluzone; Afluria) 6mo and older 12/10/2019,12/30/2018,12/29/2014,01/03,01/09/2012,12/19/2010,11/29/2009 ,11/29/2008,12/16/2007,12/17/2006,03/18 Pfizer (ages 12 & older) Biv alent, COVID-19 01/18/2022 Pfizer SARS-CoV-2 COVID-19, mRNA, LNP-S, preservative free 12/08/2020 Pneumococcal conjugate 13 va lent (Prevnar 13, PCV13) 2mo and older 12/05/2015 Pneumococcal polysaccharide 23 valent (Pneumovax 23) 2yo and older 07/09/2004,12/14/1998 Td Tetanus diptheria (Tdvax) 7yo and older 05/16/2013,03/12/2010,04/15/2001 Zoster Live 03/20/2016 Zoster recombinant (Shingrix ) 19yo and older 02/24/2020,12/16/2019 Surgical History Surgery Date Site/Laterality Comments OTHER SURGICAL HISTORY 1998 PROCEDURE: HISTORICAL SPLENECTOMY; COMMENT: for ITP OTHER SURGICAL HISTORY 05/15 PROCEDURE: [place] CYSTOTOMY SIMPLE EXCISION VESICAL NECK; COMMENT: TURBT OTHER SURGICAL HISTORY 06/03/10 PROCEDURE: IL BRONCHOSCOPY BRONCHIAL/ENDOBRNCL BX 1+ SITES OTHER SURGICAL HISTORY 06/13/10 PROCEDURE: IL RMVL LUNG OTHER THAN PNEUMONECTOMY 1 LOBE LOBECT; COMMENT: left upper WRIST SURGERY [id number] Left PROCEDURE: HISTORICAL WRIST SURGERY; COMMENT: endoscopic carpal tunnel release Medical History Medical History Date Comments 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[facility]) 1998 DX:Immune thrombocytopenic p urpura (HCC); COMMENT: s/p splenectomy Neoplasm of uncertain behavi or of bladder DX:Neoplasm of uncertain beh avior of bladder; COMMENT: low grade TCC BLADDER RESECTED 05/15-DR SOLORIO Generalized osteoarthrosis, unspecified site DX:Generalized osteoarthrosi s, unspecified site; COMMENT: L HIP Pure hypercholesterolemia 04/14/2006 DX:Pur e hypercholesterolemia GI bleed DX:GI bleed Dry skin dermatitis 03/29/2009 DX:Dry skin dermatitis Hemoptysis 03/19/2010 DX:Hemoptysis Cancer of lung ([facility]) 05/10/2010 DX:Canc er of lung ([facility]) Alcohol dependence ([facility]/HCC) 05/05/2012 DX: Alcohol dependence ([facility]) Hearing aid worn 09/05/2014 DX:Hearing aid worn; COMMENT: Melecio BENJAMIN Erosive esophagitis 10/08/2017 DX:Erosive e sophagitis; COMMENT: Per EGD 07/2017 Family History Medical History Relation Name Comments Other cancer Brother 1 throat Other cancer Brother 2 bladder Other cancer Brother 3 bladder Lung cancer Brother 4 Other cancer Brother 5 liver Mental illness Brother 6 alzheimer's Diabetes Mother Relation Name Status Comments Brother 1 Brother 2 Brother 3 Brother 4 Brother 5 Brother 6 Brother 7 (Age 37) LUNG CA Brother 8 (Age 75) LIVER CA Brother 9 (Age 75) ALZHEIMER' S Brother 10 Alive 5 BROTHERS, 1 B LADDER CA Daughter Alive 4 HEALTHY Father (Age 40) MVA Mother (Age 92) DM Sister Alive 5 SISTERS Social History Tobacco Use Types Packs/Day Years Used Date Smoking Tobacco: Former Cigarettes Q uit: 03/16/1992 Smokeless Tobacco: Former Alcohol Use Standard Drinks/Week Comments Yes 42 (1 standard drink = 0.6 oz pu re alcohol) Sex and Gender Information Value Date Recorded Sex Assigned at Not on file Legal Sex Male 11:48 AM EST Gender Identity Not on file Sexual Orientation Not on file Obstetrics History Last Filed Vital Signs Vital Sign Reading Time Taken Comments Blood Pressure 120/62 09/24/2021 10:39 AM EDT Pulse 58 09/24/2021 9:59 AM EDT Temperature - - Respiratory Rate - - Oxygen Saturation - - Inhaled Oxygen Concentration - - Weight 81.2 kg (179 lb) 09/24/2021 9:59 AM EDT Height 179.1 cm (5' 10.5 ) 09/24/2021 9:59 AM ED T Body Mass Index 25.32 09/24/2021 9:59 AM EDT Plan of Treatment Health Maintenance Due Date Last Done Comments RSV Immunization Patients 60+ Years Old (1 - 1-dose 75+ series) 2016 Pneumococcal Vaccine: 50+ Years (4 of 4 - PCV20 or PCV21) 12/04/2020 12/05/2015, 07/09/2004, 12/14/1998 Colorectal Cancer Screening: Stool Based Tests (FOBT/FIT) 02/11/2022 Depression Screening 02/11/2022 Falls Risk Assessment 02/11/2022 Medicare Annual Wellness Visit 02/11/2022 Social Influencers of Health Screening 02/11/2022 COVID-19 Vaccine ( season) 2023 01/18/2022, 12/08/2020, 05/12/2020, Additional history exists Influenza Vaccine (#1) 2023 , 12/10/2019, 12/30/2018, Additional history exists Cholesterol Screening (Lipid Panel) 09/25/2026 09/25/2021 DTaP,Tdap,and Td Vaccines (5 - Td or Tdap) 02/14/2028 02/13/2018, 05/16/2013, 03/12/2010, Additional history exists Zoster Vaccines Completed 02/24/2020, 04/2019, 03/20/2016 HIB Vaccines Aged Out No longer eligi ble based on patient's age to complete this topic HPV Vaccines Aged Out No longer eligi ble based on patient's age to complete this topic Hepatitis A Vaccines Aged Out No long er eligible based on patient's age to complete this topic Hepatitis B Vaccines Aged Out No long er eligible based on patient's age to complete this topic IPV Vaccines Aged Out No longer eligi ble based on patient's age to complete this topic MMR Vaccines Aged Out No longer eligi ble based on patient's age to complete this topic Meningococcal ACWY Vaccine Aged Out N o longer eligible based on patient's age to complete this topic Meningococcal B Vacine Aged Out No lo nger eligible based on patient's age to complete this topic RSV Immunization Patients Under 20 months Aged Out No longer eligible based on patient's age to complete this topic Varicella Vaccines Aged Out No longer eligible based on patient's age to complete this topic Procedures Procedure Name Priority Date/Time Associated Diagnosis Comments AP OUTSIDE CONSULT Routine 03/23/2024 12 :00 AM EST Personal history of malignant neoplasm of bladder LIPID PANEL Routine 09/25/2021 from Last 3 Months or Most Recently Relevant to Health Maintenance Results * Anatomic pathology outside consult (03/23/2024 12:00 AM EST) Final Diagnosis A. Urine, Voided, ([id number]): Negative for high grade urothelial carcinoma. Results of UroVysion fluorescence in situ hybridization (FISH) testing: CEP3: Normal CEP7: Normal CEP17: Normal LSI 9p21: Normal Interpretation: Normal profile Controls stained appropriately. Note: The results are intended as a screening device and should be interpreted in association with other clinical and pathological findings. 04/08/2024 5:20 PM EST [facility] Clinical Information History of bladder neoplasm (malignant) Z85.51 Cytology/FISH 04/08/2024 5:20 PM EST [facility] Gross Description A. Urine, Voided, ([id number]): Received is one ThinPrep slide for cytology screen and one ThinPrep slide for UroVysion FISH 04/08/2024 5:20 PM [facility] Disclaimer Unless otherwise specified, all tissue is 10% NB formalin fixed and paraffin embedded. Technical pathology services provided by [facility] [address] [facility] [address], [place] [address] (CLIA #[id number]/Shelli Jacobs MD, Roller Printer) 04/08/2024 5:20 PM [facility] Tissue Urine specimen from urethra / Unknown 03/23/2024 03/30/2024 11:46 AM EST Elijah Sykes MD LAB PATHOLOGY ORDERABLES Fi nal Result [facility] [address] [place] [address], * Lipid panel (09/25/2021) Triglycerides 118 <=150 mg/dL Cholesterol 149 <=200 mg/dL HDL 63 >=39 mg/dL LDL Cholesterol 62 0 - 130 mg/dL Blood Venous blood specimen / Unknown Historical Provider LAB BLOOD ORDERABLES Amee l Result from Last 3 Months or Most Recently Relevant to Health Maintenance Insurance MEDICARE [facility] Advance Directives Documents on File Type Date Recorded Patient Aquatic Facility Manager Expl anation Health Care Decision (hx) 08/04/2018 AD CISSE DIRECTIVE Health Care Decision (hx) 08/04/2018 AD CISSE DIRECTIVE Care Teams Tube Room Supervisor Relationship Specialty Start Date End Date Fam De Paz MD [address] [place] [address] PCP - General Internal Medicine 08/16/21
--- OUTSIDE RECORDS SUMMARY | 2024-05-31 10:24 | XMS_ITS | Encounter Summary ---
Author Organization [facility] Address [address] [place] [address] Care Team Providers Care Area Intelligence Technician Name Role Phone Fam De Paz MD Primary Care Provider Encounter Details Date Type Department Care Team (Late st Contact Info) Description 03/30/2024 Lab Requisition [facility] - Main Lab [address] [facility] [place] [address] Elijah Sykes MD [address] [facility] [address] [place], [place] [id number] Personal history of malignant neoplasm of bladder Social History Tobacco Use Types Packs/Day Years [...] on file Sexual Orientation Not on file documented as of this encounter Plan of Treatment Not on file documented as of this encounter Procedures Procedure Name Priority Date/Time Associated Diagnosis Comments AP OUTSIDE CONSULT Routine 03/23/2024 12 :00 AM EST Personal history of malignant neoplasm of bladder documented in this encounter Results * Anatomic pathology outside consult (03/23/2024 12:00 AM EST) Final Diagnosis A. Urine, Voided, ([id number]): Negative for high grade urothelial carcinoma. Results of UroVysion fluorescence in situ hybridization (FISH) testing: CEP3: Normal CEP7: Normal CEP17: Normal LSI 9p21: Normal Interpretation: Normal profile Controls stained appropriately. Note: The results are intended as a screening device and should be interpreted in association with other clinical and pathological findings. 04/08/2024 5:20 PM EST [facility] Clinical Information History of bladder neoplasm (malignant) Z85.51 Cytology/FISH 04/08/2024 5:20 PM [facility] Gross Description A. Urine, Voided, ([id number]): Received is one ThinPrep slide for cytology screen and one ThinPrep slide for UroVysion FISH 04/08/2024 5:20 PM [facility] Disclaimer Unless otherwise specified, all tissue is 10% NB formalin fixed and paraffin embedded. Technical pathology services provided by [facility] [address] [address] [address] (CLIA #[id number]/Shelli Jacobs MD, Social Science Analyst) 04/08/2024 5:20 PM [facility] Tissue Urine specimen from urethra / Unknown 03/23/2024 03/30/2024 11:46 AM EST Elijah Sykes MD LAB PATHOLOGY ORDERABLES Fi nal Result [facility] [address] [place] [address], documented in this encounter Visit Diagnoses Diagnosis Personal history of malignant neoplasm of bladder documented in this encounter Care Teams Area Intelligence Technician Relationship Specialty Start Date End Date Fam De Paz MD [address] [place] [address] PCP - General Internal Medicine 08/16/21 documented as of this encounter
--- OUTSIDE RECORDS SUMMARY | 2024-05-31 10:24 | XMS_ITS | Continuity of Care Document ---
Author Name [facility] Organization [facility] Care Team Providers Care Fire [employer] Name Role Phone [facility] Unavailable Unavailable Problems Combined list of problems from Department of Defense and Veterans Affairs facilities. It does not include entries that were removed or entered in error. Problem Status Onset Date Problem Type Date of Resolution Comments Source Abnormal vision Active 03/16/19 13 Condition [facility] Hearing loss Active 03/16/19 13 Condition [facility] Alcoholism Active Condition Mar 18 Entered By: LINH PAGE Comment: 42 cans beer/week [facility] Atrial fibrillation Active Condition [facility] [place] Carcinoma of bladder Active Condition Mar 07, 2016 Entered By: EVELYN LERNER Comment: Dr. Valle diagnosed pt with cystoscopy but no path available [facility] Co-Management Active Condition Mar Entered By: LINH PAGE Comment: DANYELLE Boucher, [facility] Ex-cigarette smoker Active Condition Mar 18, 2019 Entered By: LINH PAGE Comment: q1993; smoked 4ppd x 40 years [facility] History of colonoscopy Active Condition Mar 07, 2016 Entered By: EVELYN LERNER Comment: Polyps found- pt has repeat every 2-3 years [facility] Hyperlipidemia Active Condition [facility] Idiopathic thrombocytopenic purpura Active Condition Mar 18, 2019 Entered By: LINH PAGE Comment: s/p splenectomy [facility] Pancoast tumor Active Condition Feb 142015 Entered By: EVELYN LERNER Comment: Surgically removed 5 years ago. Pt did not require chemo or radiationMar 18, 2019 Entered By: LINH PAGE Comment: squamous cell CA JAMES, s/p L upper lobectomy 2010 Dr. 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 Medication Details Route Status Patient Instructions Prescription Expires Prescription Number Last Dispense Date Ordering Provider Order Date Order Qty Source ACETAMINOPH EN 325MG TAB TAKE TWO TABLETS BY MOUTH THREE TIMES DAILY NEEDED ORAL ACTIVE GISELLE PAGE O 2018 [facility] APIXABAN 5MG TAB TAKE ONE TABLET BY MOUTH EVERY 12 HOURS ORAL ACTIVE GISELLE PAGE O 2022 IELD ATORVASTATI N [place] 40MG TAB TAKE ONE-HALF TABLET BY MOUTH AT BEDTIME ORAL ACTIVE HOLDEN ENCISO 2012 [facility] DOCUSATE NA 100MG CAP TAKE 1 CAPSULE BY MOUTH EVERY DAY ORAL ACTIVE KEITH -ADRIAN GAR 2017 [facility] DONEPEZIL HCL 10MG TAB TAKE ONE TABLET BY MOUTH ONCE DAILY ORAL ACTIVE GISELLE PAGE O 2022 IELD DOXEPIN HCL 10MG CAP TAKE 1 CAPSULE BY MOUTH EVERY DAY ORAL ACTIVE KEITHADRIAN GREGG M 2017 [facility] FLUTICASONE NASAL SOLN,NASAL INSTILL INTO EACH NOSTRIL NASAL ACTIVE GISELLE PAGE O 2019 [facility] FLUTICASONE /UMECLID/ LANT (TRELEGY 100) INHL,ORAL INHALE BY MOUTH ONCE DAILY RESPIR ATORY (INHAL ATION) ACTIVE GISELLE PAGE O 2022 [facility] FUROSEMIDE 20MG TAB TAKE ONE TABLET BY MOUTH ORAL ACTIVE CAMILO, APOLINARI O 2022 [facility] IPRATROPIUM BROMIDE 0.03% SOLN,SPRAY, NASAL INSTILL INTO EACH NOSTRIL NASAL ACTIVE CAMILO, APOLINARI O 2022 IELD METOPROLOL TARTRATE 50MG TAB TAKE ONE TABLET BY MOUTH TWICE DAILY ORAL ACTIVE CAMILO, APOLINARI O 2022 IELD MOMETASONE FUROATE 0.1% CREAM,TOP APPLY A SMALL AMOUNT TOPICALL Y TOPICA L ACTIVE CAMILO, APOLINARI O 2019 [facility] [place] [facility] [facility] OMEPRAZOLE 20MG CAP,EC TAKE 1 CAPSULE BY MOUTH EVERY MORNING 30 MINUTES BEFORE BREAKFAS T ORAL ACTIVE CAMILO, APOLINARI O 2018 [facility] Immunizations Combined list of available immunizations from the Department of Defense and Veterans Affairs facilities. Immunization Series Date Given Administered By Site Reaction Lot Number CVX Code Drug Spice Fumigator Status Comments Source COVID-19 (amiando), MRNA, LNP-S, BIVALENT, PF, 30 MCG/0.3 ML DOSE 2021 300 complet ed [place] [facility] [place] [facility] [facility] INFLUENZA, UNSPECIFIED FORMULATION 2021 88 complet ed [place] [facility] [place] [facility] [facility] COVID-19, MRNA, LNP-S, BIVALENT BOOSTER, PF, 30 MCG/0.3 ML DOSE 1 2020 300 complet ed [facility] INFLUENZA VACCINE, QUADRIVALENT, ADJUVANTED 2020 205 complet ed [facility] [place] COVID-19 (amiando), MRNA, LNP-S, PF, 30 MCG/0.3 ML DOSE 2 2020 208 complet ed [facility] COVID-19 (amiando), MRNA, LNP-S, PF, 30 MCG/0.3 ML DOSE 1 2020 208 complet ed [facility] ZOSTER RECOMBINANT 2 2019 187 complet ed [facility] [place] [facility] [facility] ZOSTER RECOMBINANT 1 2019 187 complet ed [facility] INFLUENZA, SEASONAL, INJECTABLE 2018 141 complet ed [place] [facility] INFLUENZA, SEASONAL, INJECTABLE 2017 141 complet ed PCP--Momo mendez in [facility] INFLUENZA, SEASONAL, INJECTABLE 2016 141 complet ed [facility] ZOSTER (HISTORICAL) 2016 121 complet ed Exact date unknown [facility] FLU,3 YRS (HISTORICAL) 2015 88 complet ed [facility] PNEUMOCOCCAL CONJUGATE PCV 13 2014 133 complet ed [facility] FLU,3 YRS (HISTORICAL) 2014 88 complet ed [facility] DTAP, UNSPECIFIED FORMULATION 2013 107 complet ed Site: Right Deltoid [facility] FLU,3 YRS (HISTORICAL) 2013 88 complet ed [facility] PNEUMOCOCCAL, UNSPECIFIED FORMULATION 2012 109 complet ed [facility] FLU,3 YRS (HISTORICAL) 2012 88 complet ed [facility] Results Combined list of recent chemistry, hematology and other laboratory results from Department of Defense and Veterans Affairs, ranging from 15 months to all on record, depending upon the facility. Order Name Results Value Reference Range Date Interpretation Specimen Comments Source MICROALBU MIN CREATININ E RATIO PANEL MICROALBUMI N/CREATININ E [MASS RATIO] IN URINE 468.1 mg/g 0 - 29.9 11/27 H Specimen Type: URINE No comment entered. Ordering Provider: BRAEDEN PAGE Report Released Date/Time: Dec 02, 2021 09:40 AM Reporting Lab: [facility] [place] [facility] [address] [address] Performing Lab: [facility] [place] [facility] [address] [address] [facility] [place] [facility] MICROALBU MIN CREATININ E RATIO PANEL MICROALBUMI N [MASS/VOLUM E] IN URINE 6.6 mg/dL 11/27 Specimen Type: URINE No comment entered. Ordering Provider: BRAEDEN PAGE Report Released Date/Time: Dec 02, 2021 09:40 AM Reporting Lab: [facility] [place] [facility] [address] [address] Performing Lab: [facility] [place] [facility] [address] [address] [facility] [place] [facility] MICROALBU MIN CREATININ E RATIO PANEL CREATININE [MASS/VOLUM E] IN URINE 14.10 mg/dL 11/27 Specimen Type: URINE No comment entered. Ordering Provider: BRAEDEN PAGE Report Released Date/Time: Dec 02, 2021 09:40 AM Reporting [facility]: [facility] [place] [address] [address] Performing Lab: [facility] [place] [facility] [address] [address] [facility] LIPID PANEL FASTING CHOLESTEROL [MASS/VOLUM E] IN SERUM OR PLASMA 173 mg/dL 11/27 Specimen Type: SERUM No comment entered. Ordering Provider: BRAEDEN PAGE Report Released Date/Time: Dec 02, 2021 09:40 AM Reporting Lab: [facility] [place] [facility] [address] [address] Performing Lab: [facility] [place] [facility] [address] [address] [facility] [facility] LIPID PANEL FASTING TRIGLYCERID E [MASS/VOLUM E] IN SERUM OR PLASMA 150 mg/dL 0 - 150 11/27 Specimen Type: SERUM No comment entered. Ordering Provider: BRAEDEN PAGE Report Released Date/Time: Dec 02, 2021 09:40 AM Reporting Lab: [facility] [place] [facility] [address] [address] Performing Lab: [facility] [place] [facility] [address] [address] [facility] [place] [facility] LIPID PANEL FASTING CHOLESTEROL IN LDL [MASS/VOLUM E] IN SERUM OR PLASMA BY CALCULATION 93 mg/dL 0 - 129 11/27 Specimen Type: SERUM No comment entered. Ordering Provider: BRAEDEN PAGE Report Released Date/Time: Dec 02, 2021 09:40 AM Reporting Lab: [facility] [place] [facility] [address] [address] Performing Lab: [facility] [place] [facility] [address] [address] [facility] [place] [facility] LIPID PANEL FASTING CHOLESTEROL .TOTAL/CHOL ESTEROL IN HDL [MASS RATIO] IN SERUM OR PLASMA 3.5 11/27 Specimen Type: SERUM No comment entered. Ordering Provider: BRAEDEN PAGE Report Released Date/Time: Dec 02, 2021 09:40 AM Reporting Lab: [facility] [place] [facility] [address] [facility] [address] Performing Lab: [facility] [place] [facility] [address] [facility] [address] [facility] [place] [facility] LIPID PANEL FASTING CHOLESTEROL IN HDL [MASS/VOLUM E] IN SERUM OR PLASMA 50 mg/dL 40 - 60 11/27 Specimen Type: SERUM No comment entered. Ordering Provider: BRAEDEN PAGE Report Released Date/Time: Dec 02, 2021 09:40 AM Reporting Lab: [facility] [place] [facility] [address] [facility] [address] Performing Lab: [facility] [place] [facility] [address] [address] [facility] [place] [facility] BASIC METABOLIC PANEL (fasting) UREA NITROGEN [MASS/VOLUM E] IN SERUM OR PLASMA 13 mg/dL 7 - 25 11/27 Specimen Type: SERUM No comment entered. Ordering Provider: BRAEDEN PAGE Report Released Date/Time: Dec 02, 2021 09:40 AM Reporting Lab: [facility] [place] [facility] [address] [facility] [address] Performing Lab: [facility] [address] [address] [facility] BASIC METABOLIC PANEL (fasting) GLUCOSE [MASS/VOLUM E] IN SERUM OR PLASMA 105 mg/dL 65 - 100 11/27 H Specimen Type: SERUM No comment entered. Ordering Provider: BRAEDEN PAGE Report Released Date/Time: Dec 02, 2021 09:40 AM Reporting Lab: [facility] [address] [facility] [address] Performing Lab: [facility] [address] [facility] [address] [facility] BASIC METABOLIC PANEL (fasting) SODIUM [MOLES/VOLU ME] IN SERUM OR PLASMA 137 mmol/L 135 - 145 11/27 Specimen Type: SERUM No comment entered. Ordering Provider: BRAEDEN PAGE Report Released Date/Time: Dec 02, 2021 09:40 AM Reporting Lab: [facility] [address] [facility] [address] Performing Lab: [facility]ITALTRN [facility] [address] [facility] [address] [facility] BASIC METABOLIC PANEL (fasting) POTASSIUM [MOLES/VOLU ME] IN SERUM OR PLASMA 4.2 mmol/L 3.5 - 5.0 11/27 Specimen Type: SERUM No comment entered. Ordering Provider: BRAEDEN PAGE Report Released Date/Time: Dec 02, 2021 09:40 AM Reporting Lab: [facility] [address] [facility] [address] Performing Lab: [facility]ITALTRN [facility] [address] [address] [facility] BASIC METABOLIC PANEL (fasting) CHLORIDE [MOLES/VOLU ME] IN SERUM OR PLASMA 103 mmol/L 100 - 110 11/27 Specimen Type: SERUM No comment entered. Ordering Provider: BRAEDEN PAGE Report Released Date/Time: Dec 02, 2021 09:40 AM Reporting Lab: [facility] [place] [facility] [address] [address] Performing Lab: [facility] [place] [facility] [address] [address] [facility] [place] [facility] BASIC METABOLIC PANEL (fasting) CARBON DIOXIDE, TOTAL [MOLES/VOLU ME] IN SERUM OR PLASMA 26 meq/L 20 - 30 11/27 Specimen Type: SERUM No comment entered. Ordering Provider: BRAEDEN PAGE Report Released Date/Time: Dec 02, 2021 09:40 AM Reporting Lab: [facility] [place] [facility] [address] [address] Performing Lab: [facility] [place] [place] [facility] [address] [address] [facility] [place] [facility] BASIC METABOLIC PANEL (fasting) CREATININE [MASS/VOLUM E] IN SERUM OR PLASMA 0.85 mg/dL 0.50 - 1.40 11/27 Specimen Type: SERUM No comment entered. Ordering Provider: BRAEDEN PAGE Report Released Date/Time: Dec 02, 2021 09:40 AM Reporting Lab: [facility] [place] [facility] [address] [address] Performing Lab: [facility] [place] [facility] [address] [address] [facility] [place] [facility] BASIC METABOLIC PANEL (fasting) GLOMERULAR FILTRATION RATE/1.73 SQ M.PREDICTED [VOLUME RATE/AREA] IN SERUM, PLASMA OR BLOOD BY CREATININE- BASED FORMULA (CKD-EPI 2020) 87 mL/min 60 11/27 Specimen Type: SERUM No comment entered. Ordering Provider: BRAEDEN PAGE Report Released Date/Time: Dec 02, 2021 09:40 AM Reporting Lab: [facility] [place] [facility] [address] [address] Performing Lab: [facility] [place] [facility] [address] [address] [facility] [place] [facility] LIVER FUNCTION PROTEIN [MASS/VOLUM E] IN SERUM OR PLASMA 6.6 g/dL 6.0 - 8.3 11/27 Specimen Type: SERUM No comment entered. Ordering Provider: BRAEDEN PAGE Report Released Date/Time: Dec 02, 2021 09:40 AM Reporting Lab: [facility] [place] [facility] [address] [address] Performing Lab: [facility] [place] [facility] [address] [address] [facility] [place] [facility] LIVER FUNCTION ALBUMIN [MASS/VOLUM E] IN SERUM OR PLASMA 3.6 g/dL 3.5 - 5.0 11/27 Specimen Type: SERUM No comment entered. Ordering Provider: BRAEDEN PAGE Report Released Date/Time: Dec 02, 2021 09:40 AM Reporting Lab: [facility] [place] [address] [address] Performing Lab: [facility] [place] [place] [facility] [address] [address] [facility] LIVER FUNCTION ALKALINE PHOSPHATASE [ENZYMATIC ACTIVITY/VO LUME] IN SERUM OR PLASMA 68 U/L 40 - 150 11/27 Specimen Type: SERUM No comment entered. Ordering Provider: BRAEDEN PAGE Report Released Date/Time: Dec 02, 2021 09:40 AM Reporting Lab: [facility] [facility] [address] [address] Performing Lab: [facility] [facility] [address] [address] [facility] [place] [facility] LIVER FUNCTION ASPARTATE AMINOTRANSF ERASE [ENZYMATIC ACTIVITY/VO LUME] IN SERUM OR PLASMA 19 U/L 5 - 34 11/27 Specimen Type: SERUM No comment entered. Ordering Provider: BRAEDEN PAGE Report Released Date/Time: Dec 02, 2021 09:40 AM Reporting Lab: [facility] [place] [facility] [address] [address] Performing Lab: [facility] [place] [facility] [address] [address] [facility] [place] [facility] LIVER FUNCTION ALANINE AMINOTRANSF ERASE [ENZYMATIC ACTIVITY/VO LUME] IN SERUM OR PLASMA 32 U/L 11/27 Specimen Type: SERUM No comment entered. Ordering Provider: BRAEDEN PAGE Report Released Date/Time: Dec 02, 2021 09:40 AM Reporting Lab: [facility] [place] [facility] [address] [address] Performing Lab: [facility] [place] [facility] [address] [address] [facility] LIVER FUNCTION BILIRUBIN.T OTAL [MASS/VOLUM E] IN SERUM OR PLASMA 1.2 mg/dL 0.2 - 1.2 11/27 Specimen Type: SERUM No comment entered. Ordering Provider: BRAEDEN PAGE Report Released Date/Time: Dec 02, 2021 09:40 AM Reporting Lab: [facility] [place] [facility] [address] [address] Performing Lab: [facility] [place] [facility] [address] [address] [facility]N [facility] LIVER FUNCTION BILIRUBIN.D IRECT [MASS/VOLUM E] IN SERUM OR PLASMA 0.4 mg/dL 0 - 0.5 11/27 Specimen Type: SERUM No comment entered. Ordering Provider: BRAEDEN PAGE Report Released Date/Time: Dec 02, 2021 09:40 AM Reporting Lab: [facility] [facility] [address] [address] Performing Lab: [facility] [place] [facility] [address] [address] [facility]N [facility] [facility] HEMOGLOBI N A1C PANEL HEMOGLOBIN A1C/HEMOGLO BIN.TOTAL IN BLOOD BY HPLC 5.7 4.0 - 5.6 11/27 H Specimen Type: BLOOD Comment: Values obtained from A1C measurement s can vary. For atypical A1C assays, a reported value of 7.0 could actually be between 6.72 and 7.28 if measured by a reference method. A reported value of 9.0 could actually be between 8.73 and 9.27. Ref: http://www. [facility]p.org/[place] Pdata.asp Ordering Provider: BRAEDEN PAGE Report Released Date/Time: Dec 02, 2021 09:40 AM Reporting Lab: [facility] [place] [facility] [address] [place] [address] Performing Lab: [facility] [place] [facility] [address] [facility] [address] [facility] [place] [facility] TSH THYROTROPIN [UNITS/VOLU ME] IN SERUM OR PLASMA 2.05 u[IU]/ mL 0.35 - 5.00 11/27 Specimen Type: SERUM No comment entered. Ordering Provider: BRAEDEN PAGE Report Released Date/Time: Dec 02, 2021 09:40 AM Reporting Lab: [facility] [place] [address] [address] Performing Lab: [facility] [place] [facility] [address] [facility] [address] [place] [facility] [place] [facility] CBC AND DIFF (AUTO) LEUKOCYTES [#/VOLUME] IN BLOOD BY AUTOMATED COUNT 5.82 10*3/u L 4.50 - 11.00 11/27 Specimen Type: BLOOD No comment entered. Ordering Provider: BRAEDEN PAGE Report Released Date/Time: Dec 02, 2021 09:40 AM Reporting Lab: [facility] [place] [facility] [address] [address] Performing Lab: [facility] [place] [facility] [address] [place] [address] [facility] [place] [facility] CBC AND DIFF (AUTO) ERYTHROCYTE S [#/VOLUME] IN BLOOD BY AUTOMATED COUNT 4.80 10*6/u L 4.23 - 5.66 11/27 Specimen Type: BLOOD No comment entered. Ordering Provider: BRAEDEN PAGE Report Released Date/Time: Dec 02, 2021 09:40 AM Reporting Lab: [facility] [place] [facility] [address] [address] Performing Lab: [facility] [place] [facility] [address] [address] [facility] [place] [facility] CBC AND DIFF (AUTO) HEMOGLOBIN [MASS/VOLUM E] IN BLOOD 15.2 g/dL 12.8 - 17 11/27 Specimen Type: BLOOD No comment entered. Ordering Provider: BRAEDEN PAGE Report Released Date/Time: Dec 02, 2021 09:40 AM Reporting Lab: [facility] [place] [facility] [address] [facility] [address] Performing Lab: [facility] [place] [facility] [address] [address] [facility] [place] [facility] CBC AND DIFF (AUTO) HEMATOCRIT [VOLUME FRACTION] OF BLOOD BY AUTOMATED COUNT 44.8 39.2 - 50.4 11/27 Specimen Type: BLOOD No comment entered. Ordering Provider: BRAEDEN PAGE Report Released Date/Time: Dec 02, 2021 09:40 AM Reporting Lab: [facility] [place] [facility] [address] [address] Performing Lab: [facility] [place] [facility] [address] [address] [facility] [place] [facility] CBC AND DIFF (AUTO) MCV [ENTITIC VOLUME] BY AUTOMATED COUNT 93.3 fL 82 - 99 11/27 Specimen Type: BLOOD No comment entered. Ordering Provider: BRAEDEN PAGE Report Released Date/Time: Dec 02, 2021 09:40 AM Reporting Lab: [facility] [place] [facility] [address] [address] Performing Lab: [facility] [place] [facility] [address] [address] [facility] [place] [facility] CBC AND DIFF (AUTO) MCHC [MASS/VOLUM E] BY AUTOMATED COUNT 33.9 g/dL 30.8 - 35.1 11/27 Specimen Type: BLOOD No comment entered. Ordering Provider: BRAEDEN PAGE Report Released Date/Time: Dec 02, 2021 09:40 AM Reporting Lab: [facility] [place] [facility] [address] [address] Performing Lab: [facility] [address] [facility] [address] [facility] CBC AND DIFF (AUTO) PLATELETS [#/VOLUME] IN BLOOD BY AUTOMATED COUNT 260 10*3/u L 140 - 360 11/27 Specimen Type: BLOOD No comment entered. Ordering Provider: BRAEDEN PAGE Report Released Date/Time: Dec 02, 2021 09:40 AM Reporting Lab: [facility] [address] [facility] [address] Performing Lab: [facility] [place] [facility] [address] [facility] [address] [facility] CBC AND DIFF (AUTO) ERYTHROCYTE DISTRIBUTIO N WIDTH [RATIO] BY AUTOMATED COUNT 16.1 12.0 - 16.0 11/27 H Specimen Type: BLOOD No comment entered. Ordering Provider: BRAEDEN PAGE Report Released Date/Time: Dec 02, 2021 09:40 AM Reporting Lab: [facility] [address] [facility] [address] Performing Lab: [facility] [place] [facility] [address] [facility] [address] [facility] CBC AND DIFF (AUTO) MONOCYTES [#/VOLUME] IN BLOOD BY AUTOMATED COUNT 0.92 10*3/u L 0.30 - 1.10 11/27 Specimen Type: BLOOD No comment entered. Ordering Provider: BRAEDEN PAGE Report Released Date/Time: Dec 02, 2021 09:40 AM Reporting Lab: [facility] [address] [facility] [address] Performing Lab: [facility] [address] [facility] [address] [facility] CBC AND DIFF (AUTO) MCH [ENTITIC MASS] BY AUTOMATED COUNT 31.7 pg 26.2 - 32.6 11/27 Specimen Type: BLOOD No comment entered. Ordering Provider: BRAEDEN PAGE Report Released Date/Time: Dec 02, 2021 09:40 AM Reporting Lab: [facility] [place] [facility] [address] [facility] [address] Performing Lab: [facility] [place] [facility] [address] [facility] [address] [facility] CBC AND DIFF (AUTO) NEUTROPHILS /100 LEUKOCYTES IN BLOOD BY AUTOMATED COUNT 63.2 43.7 - 75.8 11/27 Specimen Type: BLOOD No comment entered. Ordering Provider: BRAEDEN PAGE Report Released Date/Time: Dec 02, 2021 09:40 AM Reporting Lab: [facility] [address] [address] Performing Lab: [facility] [place] [facility] [address] [facility] [address] [facility] [place] CBC AND DIFF (AUTO) LYMPHOCYTES /100 LEUKOCYTES IN BLOOD BY AUTOMATED COUNT 16.5 14.0 - 42.3 11/27 Specimen Type: BLOOD No comment entered. Ordering Provider: BRAEDEN PAGE Report Released Date/Time: Dec 02, 2021 09:40 AM Reporting Lab: [facility] [place] [address] [address] Performing Lab: [facility] [place] [facility] [address] [facility] [address] [facility] [place] CBC AND DIFF (AUTO) MONOCYTES/1 00 LEUKOCYTES IN BLOOD BY AUTOMATED COUNT 15.8 5.1 - 13.7 11/27 H Specimen Type: BLOOD No comment entered. Ordering Provider: BRAEDEN PAGE Report Released Date/Time: Dec 02, 2021 09:40 AM Reporting Lab: [facility] [address] [address] Performing Lab: [facility] [address] [address] [facility] CBC AND DIFF (AUTO) EOSINOPHILS /100 LEUKOCYTES IN BLOOD BY AUTOMATED COUNT 2.9 0.4 - 6.8 11/27 Specimen Type: BLOOD No comment entered. Ordering Provider: BRAEDEN PAGE Report Released Date/Time: Dec 02, 2021 09:40 AM Reporting Lab: [facility] [address] [facility] [address] Performing Lab: [facility] [address] [facility] [address] [facility] CBC AND DIFF (AUTO) BASOPHILS/1 00 LEUKOCYTES IN BLOOD BY AUTOMATED COUNT 0.9 0.1 - 2.0 11/27 Specimen Type: BLOOD No comment entered. Ordering Provider: BRAEDEN PAGE Report Released Date/Time: Dec 02, 2021 09:40 AM Reporting Lab: [facility] [place] [facility] [address] [facility] [address] Performing Lab: [facility] [place] [facility] [address] [facility] [address] [facility] CBC AND DIFF (AUTO) NEUTROPHILS [#/VOLUME] IN BLOOD BY AUTOMATED COUNT 3.68 10*3/u L 2.20 - 7.60 11/27 Specimen Type: BLOOD No comment entered. Ordering Provider: BRAEDEN PAGE Report Released Date/Time: Dec 02, 2021 09:40 AM Reporting Lab: [facility] [address] [facility] [address] Performing Lab: [facility] [address] [facility] [address] [facility] CBC AND DIFF (AUTO) LYMPHOCYTES [#/VOLUME] IN BLOOD BY AUTOMATED COUNT 0.96 10*3/u L 1.00 - 3.20 11/27 L Specimen Type: BLOOD No comment entered. Ordering Provider: BRAEDEN PAGE Report Released Date/Time: Dec 02, 2021 09:40 AM Reporting Lab: [facility] [place] [facility] [address] [facility] [address] Performing Lab: [facility] [place] [facility] [address] [facility] [address] [facility] CBC AND DIFF (AUTO) EOSINOPHILS [#/VOLUME] IN BLOOD BY AUTOMATED COUNT 0.17 10*3/u L 0.03 - 0.44 11/27 Specimen Type: BLOOD No comment entered. Ordering Provider: BRAEDEN PAGE Report Released Date/Time: Dec 02, 2021 09:40 AM Reporting Lab: [facility] [place] [facility] [address] [facility] [address] Performing Lab: [place] [facility] [place] [facility] [address] [facility] [address] [place] [facility] [place] [facility] CBC AND DIFF (AUTO) BASOPHILS [#/VOLUME] IN BLOOD BY AUTOMATED COUNT 0.05 10*3/u L 0.01 - 0.13 11/27 Specimen Type: BLOOD No comment entered. Ordering Provider: BRAEDEN PAGE Report Released Date/Time: Dec 02, 2021 09:40 AM Reporting Lab: [facility] [place] [facility] [address] [facility] [address] Performing Lab: [facility] [place] [facility] [address] [facility] [address] [place] [facility] [place] [facility] CBC AND DIFF (AUTO) IMMATURE GRANULOCYTE S/100 LEUKOCYTES IN BLOOD BY AUTOMATED COUNT 0.7 0.0 - 0.7 11/27 Specimen Type: BLOOD No comment entered. Ordering Provider: BRAEDEN PAGE Report Released Date/Time: Dec 02, 2021 09:40 AM Reporting Lab: [facility] [place] [facility] [address] [facility] [address] Performing Lab: [facility] [place] [facility] [address] [facility] [address] [facility] CBC AND DIFF (AUTO) IMMATURE GRANULOCYTE S [#/VOLUME] IN BLOOD 0.04 10*3/u L 0.00 - 0.06 11/27 Specimen Type: BLOOD No comment entered. Ordering Provider: BRAEDEN PAGE Report Released Date/Time: Dec 02, 2021 09:40 AM Reporting Lab: [facility] [address] [facility] [address] Performing Lab: [facility] [address] [facility] [address] [facility] VITAMIN D (25-OH) 25-HYDROXYV ITAMIN D3 [MASS/VOLUM E] IN SERUM OR PLASMA 36 ng/mL 20 - 50 11/27 Specimen Type: SERUM No comment entered. Ordering Provider: BRAEDEN PAGE Report Released Date/Time: Dec 02, 2021 09:40 AM Reporting Lab: [facility] [address] [facility] [address] Performing Lab[facility] [address] [facility] [address] [facility] Encounters Combined list of: 1) Encounters from Department of [facility] Affairs facilities going backup to the last 18 months, not all [place] inpatient encounters are included; 2) Encounters from the Department of Defense facilities going backup to 280 months. Location Location Details Encounter Type Encounter Number Reason For Visit Attending Provider ADM Date DC Date Status Disposition Source [facility] LD OFFICE O/P EST MOD 30-39 MIN [id number] Diagnos is: ICD-10- CM Z00.01 Encount er for general adult medical exam w abnorma l finding s Denis PAGE [place]IOLA12[place] [facility] [place] [facility] Outpatient Encounter [id number] 12/03 [facility] [facility] OFF[facility] O/P EST MOD 30-39 MIN [id number] Diagnos is: ICD-10- CM F03.A0 Unspeci fied dementi a, mild, 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 Social History Type Response Date Comment Source Tobacco smoking status [facility] NEVER USED 11[facility]26[facility]2022 [facility] [place] [facility]2020 [place] History of tobacco use [place]-TOBACCO FORMER USER 03/17/2018 [place] History of tobacco use QUIT TOBACCO USE > 7 YEARS AGO 03/17/2017 [place] History of tobacco use QUIT TOBACCO USE > 7 YEARS AGO 03/07/2016 reports quitting 20 years ago [place] History of tobacco use LIFETIME NON-TOBACCO USER 02/27/2015 [facility] History of tobacco use QUIT TOBACCO USE > 7 YEARS AGO 01/03/2013 pt guit 20 years ago. [facility] [place] [facility]
== END 2024-05-31 09:50 | disposition home or self-care (01) ==
LOC: HO.HPSW 09:32
PROVIDERS: PCP Internal Medicine; Visit Provider Nurse Practitioner Family
DX: J44.9 Chronic obstructive pulmonary disease, unspecified (principal); C34.12 Malignant neoplasm of upper lobe, left bronchus or lung; J30.9 Allergic rhinitis, unspecified
CPT/HCPCS: 99214

== ENCOUNTER 2024-05-31 10:05 | Outpatient (REF) | payer MEDICARE, SELFPAY ==
[2024-05-31 11:20] LABS: MANUAL DIFF FLAG NO
[2024-05-31 11:29] LABS: Basophils Absolute Auto 0.1 X10*3/uL (0.0-0.2); Basophils Percent Auto 0.8 % (0-2); Eosinophils Absolute Auto 0.1 X10*3/uL (0.0-0.4); Hematocrit 44.2 % (42.0-52.0); Hemoglobin 15.1 g/dl (14.0-18.0); Imm Gran Abs Auto 0.03 X10*3/uL (0.00-0.03); Imm Gran Pct Auto 0.5 % (0.0-0.4); Lymphocytes Absolute Auto 0.9 X10*3/uL (1.2-4.9); Lymphocytes Percent Auto 14.9 % (20-40); Mean Corpuscular HGB Conc 34.2 g/dl (31.0-36.0); Mean Corpuscular Hemoglobin 31.3 pg (27.0-33.0); Mean Corpuscular Volume 91.5 fL (80.0-98.0); Mean Platelet Volume 10.3 fL (9.4-12.4); Monocytes Percent Auto 16.9 % (2-11); Neutrophils Absolute Auto 3.9 x10*3/uL (2.0-8.3); Neutrophils Percent Auto 65.9 % (45-73); Platelet Count 283 X10*3/uL (160-400); Red Blood Count 4.83 X10*6/uL (4.60-5.80); Red Cell Distribution Width 15.2 % (11.0-16.0); White Blood Count 5.9 X10*3/uL (4.8-10.8)
[2024-06-01 07:38] LABS: Immunoglobulin E 140 kU/L (<OR=114)
[2024-06-09 22:38] LABS: Class Alternaria alternata 0; Class Aspergillus fumigatus 0; Class Bermuda Grass 0; Class Birch 0; Class Cat Dander 0; Class Cladosporium herbarum 0; Class Cockroach 0; Class Common Ragweed 0; Class Cottonwood 0; Class Derm. pterony 0; Class Dermatophagoides farinae 0; Class Dog Dander 0; Class Elm 0; Class Maple Box Elder 0; Class Mountain Cedar 0; Class Mouse Urine Protein 0; Class Mugwort 0; Class Oak 0; Class Penicillium crysogenum 0; Class Rough Pigweed 0; Class Sheep Sorrel 0; Class Sycamore 0; Class Timothy Grass 0; Class Walnut Tree 0; Class White Ash 0; Class White Mulberry 0; D001 IgE D pteronyssinus <0.10 kU/L; D002 - IgE D farinae <0.10 kU/L; E001 - IgE Cat Dander <0.10 kU/L; E005 - IgE Dog Dander <0.10 kU/L; E072-IgE Mouse Urine <0.10 kU/L; G002 IgE Bermuda Grass <0.10 kU/L; G006 - IgE Timothy Grass <0.10 kU/L; I006-IgE Cockroach, German <0.10 kU/L; Immunoglobulin E 193 kU/L (<OR=114); M001 IgE Penicillium chrysogen <0.10 kU/L; M002 - IgE Cladosporium herbar <0.10 kU/L; M003 - IgE Aspergillus fumigat <0.10 kU/L; M006 - IgE Alternaria alternat <0.10 kU/L; T001 IgE Maple/Box Elder <0.10 kU/L; T003 IgE Common Silver Birch <0.10 kU/L; T006 - IgE Cedar, Mountain <0.10 kU/L; T007 - IgE Oak, White <0.10 kU/L; T008 IgE Elm, American <0.10 kU/L; T010 - IgE Walnut <0.10 kU/L; T011 - IgE Maple Leaf Sycamore <0.10 kU/L; T014 - IgE Cottonwood <0.10 kU/L; T015 - IgE Ash, White <0.10 kU/L; T070 - IgE White Mulberry <0.10 kU/L; W001 - IgE Ragweed, Short <0.10 kU/L; W006 - IgE Mugwort <0.10 kU/L; W014 IgE Pigweed, Common <0.10 kU/L; W018 IgE Sheep Sorrel <0.10 kU/L
== END 2024-05-31 10:06 | disposition home or self-care (01) ==
LOC: HO.WFDLDS 10:05
PROVIDERS: Visit Provider Nurse Practitioner Family
DX: Z91.09 Other allergy status, other than to drugs and biological substances (principal); C34.12 Malignant neoplasm of upper lobe, left bronchus or lung; J30.9 Allergic rhinitis, unspecified; Z90.2 Acquired absence of lung [part of]
CPT/HCPCS: 36415; 82785; 85025; 86003; 99212

== ENCOUNTER 2024-09-02 09:13 | Outpatient (AMB) | payer MEDICARE, SELFPAY ==
--- NOTE | 2024-09-02 09:20 | A.OFFVIS_ITS ---
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 Today he presents for a routine visit. He has been moderately controlled on Trelegy, reporting worsening dyspnea on exertion. Denies any cough, wheezing, chest tightness. He does see cardiology through [facility], last appt 01/06 and last echo 2021 reveale d LVEF 55%. He denies any visits to urgent care or hospitalizations since the last visit. [facility] Social History (Reviewed 09/02/24 @ 09:24 by Brooke Elizalde [facility]) Patient Tobacco Use Status: Former Tobacco user Tobacco use type: Cigarette Cigarette Packs Per Day: 3 Years Smoked: 40 Review of Systems Const Denies chills, Denies excessive sweating, Denies fever(s), Denies headache(s) and Denies night sweats Eyes Denies dry eyes, Denies irritation and Denies itchy eyes ENT Reports Normal hearing present, Denies headache(s), Denies nasal congestion and Denies sore throat Card Denies chest pain, Denies chest pain at rest, Denies chest pain with activity, Denies claudication, Denies leg edema, Denies orthopnea and Denies paroxysmal nocturnal dyspnea Resp Denies chest congestion, Denies cough, Denies excessive phlegm production, Denies pain on inspiration, Denies pain with cough, Denies stridor and Denies wheezing Musc Denies myalgias Neuro Reports Normal hearing present and Denies headache(s) Endo Denies excessive sweating Barry/Lymph Denies lymphadenopathy Aller/Immun Denies itchy eyes and Denies wheezing Physical Exam Vital Signs: Last Vital Signs Pulse 101 H 09/02/24 09:21 BP 134/78 09/02/24 09:21 Pulse Ox 96 09/02/24 09:21 Oxygen Delivery Method Room Air 09/02/24 09:21 BMI result Body Mass Index 26.0 Const General: cooperative, healthy appearing, comfortable, no acute distress, well developed and alert Orientation/consciousness: patient oriented x3 Limitations: no limitations HEENT Head: Yes normal to inspection, Yes normocephalic and Yes atraumatic Ears: hearing grossly normal bilaterally and external ears normal Eyes General: appearance normal, both eyes and all related structures Eyelids: Yes eyelids normal Sclerae: sclerae normal EOM: EOMs intact bilaterally Neck Neck: Yes normal visual inspection and Yes no lymphadenopathy Lymphatic: no lymphadenopathy noted Chest Chest palpation & inspection: normal inspection of the chest Resp Other: decreased aeration throughout RLL Effort & Inspection: normal respiratory effort, able to speak in complete sentences, no audible wheezes, no cough, no stridor, not tachypneic, no tripod positioning and no use of accessory muscles Cardio Jugular venous distension: no JVD Rate: regular rate Skin Other: warm, dry General skin exam: no rashes or lesions noted Neuro General: patient oriented x3 Cranial nerves: Yes Normal hearing present Cognition (Neuro): normal cognition Gait exam (Neuro): Normal gait present Extrem Other: trace BLE edema Psych Appearance: grossly normal and well kempt Speech and movement: Normal speech and movement present and Clear speech present Affect: normal affect Attitude: cooperative Thought process: Normal thought process present Thought content: Normal thought content present Insight: Good insight present (Psych) Judgement: Good judgement present (Psych) Office Procedures 6 Minute Walk Time:: 09:45 SPO2 % at rest: 99 Pulse at rest: 94 SPO2 % during excercise: 98 Pulse during excercise: 132 SPO2 % after excercise: 98 Pulse after excercise: 117 Distance in yards walked: 75 Mehnaz Score: 7 Performance Observations:: Patient walked on level ground unassisted. Patient was able to completed 5 minutes of walking maintaining O2 saturation of 98% or greater. Pulse rate was progressively higher through the walk and at the 5 minute gracia pulse was 132 and patient was short of breath..walk was stopped. Supplemental oxygen was not indicated. [id number] - 6 Minute Walk Results Reviewed Results Reviewed: Echo Complete-Doppler, Colorflow, M-Mode Transthoracic Echocardiography Report (TTE) Patient Demographics Patient Name DIXIE PEDRAZA Date of Study 08/16/2021 [employer] Gender Male Facility Race Ethnicity Date of 1940 Height: 68.11 inches Age 81 year(s) Weight: 180.78 pounds Accession Number [id number] BSA: 1.96 m2 Room Number [id number] BMI: 27.4 kg/m2 Referring Physician DEBBI FAJARDO Interpreting Physician Abner Madison MD Building Maintenance Superintendent Sonja Garcia [facility] Indications Atrial fibrillation. Study Data Type of Study TTE procedure:Echo Complete-Doppler, Colorflow, M-Mode. Study Date08/16/2021 Start Time: 07:39 AM Study Location: [facility] Echo Study Status: Bedside Patient Status: Routine Technical Quality: Adequate Blood Pressure:154/76 mmHg 2D Measurements LV Diastolic Dimension: 5.1 cm LV Systolic Dimension: 3.6 cm LV Septum Diastolic: 0.8 cm LV PW Diastolic: 1.1 cm AO Root Dimension: 3.6 cm LA Dimension: 3.8 cm LA ESV (BP):60.4 ml LVOT Stroke Volume: 52.32 ml LA ESV Index: 31 ml/m2 Stroke Volume Index26.69 ml/m2 LVOT: 2.3 cm Ascending Aorta:3.1 cm Doppler Measurements AV Peak Velocity: 69.5 cm/s AV Peak Gradient: 1.93 mmHg LVOT Peak Velocity: 68.5 cm/s LVOT VTI12.6 cm Cardiac Anatomy Left Ventricle/Interventricular Septum The left ventricular size is normal. Left ventricular wall thickness is normal. The LV systolic function is normal . The left ventricular ejection fraction is 55-60 %. Mild hypokinesis of the mid to apical inferoseptal wall could not be excluded. Unable to assess diastolic function due to atrial fibrillation. Left Atrium/Interatrial Septum The left atrium is normal in size. The interatrial septum appears intact. Aortic Valve The aortic valve is trileaflet . The aortic valve appears mildly calcified. There is no evidence of aortic stenosis. There is trace aortic regurgitation. Mitral Valve There is mild mitral regurgitation. Aorta The ascending aorta and aortic root are normal in size. Right Ventricle The right ventricle is normal in size and function. Right Atrium The right atrium is normal in size. Pulmonic Valve The pulmonic valve is normal in structure and function. There is trace pulmonic regurgitation. Tricuspid Valve The tricuspid valve is normal in structure and function. There is no stenosis or insufficiency. Pumonary Artery The pulmonary artery appears normal. An accurate pulmonary artery pressure could not be obtained. Venous Structures The inferior vena cava appears normal. Pericardium/Extracardiac There is no pericardial effusion. Summary The aortic valve appears mildly calcified. There is no evidence of aortic stenosis. There is trace aortic regurgitation. There is mild mitral regurgitation. The left ventricular size is normal. Left ventricular wall thickness is normal. The LV systolic function is normal . The left ventricular ejection fraction is 55-60 %. Mild hypokinesis of the mid to apical inferoseptal wall could not be excluded. Unable to assess diastolic function due to atrial fibrillation. An accurate pulmonary artery pressure could not be obtained. Comparison No prior study available for comparison. 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 6MWT performed today and patient does not require supplemental oxygen however became tachycardic HR 130s. He is established with cardiology and may have a cardiac component to worsening dyspnea. Trace BLE edema on exam, pt reportedly compliant with lasix 20 mg QD. Denies orthopnea. Wi ll send for CXR today given diminished aeration throughout the RLL. All questions were answered and patient is in agreement of plan. Will follow up in 2-3 months or sooner if needed. 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
[2024-09-02 09:21] VITALS: BP 134/78; PULSE 101; O2SAT 96; BMI 26.0
--- OUTSIDE RECORDS SUMMARY | 2024-09-02 09:33 | XMS_ITS | Clinical Summary ---
Author Organization LL [address] [place] [address] [place] [phone] Phone Care Team Providers Care Girls Tennis Coach Name Role Phone Fam De Paz MD [...] Noted Date Diagnosed Date Malignant neoplasm of urinar y bladder (CMS/HCC V24, CMS/HCC V28) 09/10/2018 Overview (03/02/2024): Dx in July 2018. [...] 09/09/2016 Hearing aid worn 09/05/2014 Overview (03/02/2024): [facility] bilateral Alcohol dependence ([facility] V24, [facility] V28) Cancer of lung ([facility] V24, [facility] V28) 2010 Overview (03/02/2024): Dr Singh 04/2010, left upper lobectomy by Dr. Jaimes in May 2010, Stage 1B, T2aN0 Dry skin dermatitis 03/29/2009 Overview (03/02/2024): Dr Cordell neff 04/14/2006 Overview (03/02/2024): [facility] thrombocytopenic purpura ([facility] V24, [facility] V28) 04/14/2006 Overview (03/02/2024): s/p splenectomy Generalized osteoarthrosis 04/14/2006 Overview (03/02/2024): L HIP Encounters Date Type Department Care Team Description 08/01/2024 Lab Requisition [facility] - Main Lab [address] [facility] [place] [address] Elijah Sykes MD Gross hematuria from Last 3 Months Immunizations Name Administration [...] for ITP OTHER SURGICAL HISTORY 05/15 PROCEDURE: MI CYSTOTOMY SIMPLE EXCISION VESICAL NECK; COMMENT: TURBT OTHER SURGICAL HISTORY 06/03/10 PROCEDURE: MI BRONCHOSCOPY BRONCHIAL/ENDOBRNCL BX 1+ SITES OTHER SURGICAL HISTORY 06/13/10 PROCEDURE: MI RMVL LUNG OTHER THAN PNEUMONECTOMY 1 LOBE LOBECT; COMMENT: left upper WRIST SURGERY [id number] Left PROCEDURE: HISTORICAL WRIST SURGERY; COMMENT: endoscopic carpal tunnel release Medical History Medical History Date Comments 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[facility] V24, [facility] V28) 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); COMMENT: s/p splenectomy Neoplasm of uncertain behavi or of bladder DX:Neoplasm of uncertain beh avior of bladder; COMMENT: low grade TCC BLADDER RESECTED 05/15-DR SOLORIO Generalized osteoarthrosis, unspecified site DX:Generalized osteoarthrosi s, unspecified site; COMMENT: L HIP Pure hypercholesterolemia 04/14/2006 DX:Pur e hypercholesterolemia GI bleed DX:GI bleed Dry skin dermatitis 03/29/2009 DX:Dry skin dermatitis Hemoptysis 03/19/2010 DX:Hemoptysis Cancer of lung ([facility] V24, [facility] V28) 05/10/2010 DX:Cancer of lung (HCC) Alcohol dependence ([facility] V24, [facility] V28) 05/05/2012 DX:Alcohol dependence (HCC) Hearing aid worn 09/05/2014 DX:Hearing aid worn; [...] Health Maintenance Due Date Last Done Comments Hepatitis A Vaccines (1 of 2 - Risk 2-dose series) 1960 RSV Immunization Adult Patients (1 - 1-dose 75+ series) 2016 Pneumococcal Vaccine: 50+ Years (4 of 4 - PCV20 or PCV21) 12/04/2020 12/05/2015, 07/09/2004, 12/14/1998 Colorectal Cancer Screening: Stool Based Tests (FOBT/FIT) 02/11/2022 Depression Screening 02/11/2022 Falls Risk Assessment 02/11/2022 Medicare Annual Wellness Visit 02/11/2022 Social Influencers of Health Screening 02/11/2022 COVID-19 Vaccine ( - season) 2023 01/18/2022, 12/08/2020, 05/12/2020, Additional history exists Influenza Vaccine (Season Ended) 2024 12/09/2022, 12/10/2019, 12/30/2018, Additional history exists Cholesterol Screening [...] age to complete this topic Meningococcal B Vaccine Aged Out No l onger eligible based on patient's age to complete this topic RSV Immunization Patients Under 20 months Aged Out No longer eligible based on patient's age to complete this topic Varicella Vaccines Aged Out No longer eligible based on patient's age to complete this topic Procedures Procedure Name Priority Date/Time Associated Diagnosis Comments AP OUTSIDE CONSULT Routine 07/27/2024 12 :00 AM EDT Gross hematuria LIPID PANEL Routine 09/25/2021 from Last 3 Months or Most Recently Relevant to Health Maintenance Results * Anatomic pathology outside consult (07/27/2024 12:00 AM EDT) Final Diagnosis A. Urine, Cystoscopic, [id number]: Negative for high grade urothelial carcinoma. Results of [employer] fluorescence in situ hybridization (FISH) testing: CEP3: Normal CEP7: Normal CEP17: Normal LSI 9p21: Normal Interpretation: Normal profile Controls stained appropriately. Note: The results are intended as a screening device and should be interpreted in association with other clinical and pathological findings. 08/15/2024 10:44 AM EDT [facility] Clinical Information Gross hematuria R31.0 Urine Cytology/FISH (now) 08/15/2024 10:44 AM EDT [facility] Gross Description A. Cystoscopic, [id number]: Received one ThinPrep slide for cytology and one ThinPrep slide for U[employer] FISH 08/15/2024 10:44 AM EDT [facility] Disclaimer Unless otherwise specified, all tissue is 10% NB formalin fixed and paraffin embedded. Technical pathology services provided by [facility] at [address] [place] [address] [address], [place] [id number] (CLIA #[id number]/Shelli Jacobs MD, Transportation Superintendent) 08/15/2024 10:44 AM EDT [facility] Tissue Cystoscope / Unknown 07/27/2024 08/01/2024 9:00 AM EDT Elijah Sykes MD LAB PATHOLOGY ORDERABLES Fi nal Result [facility] [address] [place] [address], * Lipid panel (09/25/2021) Triglycerides 118 <=150 mg/dL Cholesterol 149 <=200 mg/dL HDL 63 >=39 mg/dL LDL Cholesterol 62 0 - 130 mg/dL Blood Venous blood specimen / Unknown Durga Vanessa MD LAB BLOOD ORDERABLES Amee l Result from Last 3 Months or Most Recently Relevant to Health Maintenance Insurance MEDICARE [facility] Advance Directives Documents on File Type Date Recorded Patient Certified Orthoptist Expl anation Health Care Decision (hx) 08/04/2018 AD CISSE DIRECTIVE Health Care Decision (hx) 08/04/2018 AD CISSE DIRECTIVE Care Teams Girls Tennis Coach Relationship Specialty Start Date End Date Fam De Paz MD [address] [place] [address] PCP - General Internal Medicine 08/16/21
[2024-09-02 09:59] VITALS: PULSE 94; O2SAT 99
== END 2024-09-02 10:28 | disposition home or self-care (01) ==
LOC: HO.HPSW 09:13
PROVIDERS: PCP Internal Medicine; Visit Provider Nurse Practitioner Family
DX: J44.9 Chronic obstructive pulmonary disease, unspecified (principal); C34.12 Malignant neoplasm of upper lobe, left bronchus or lung; J30.9 Allergic rhinitis, unspecified
CPT/HCPCS: 94618; 99214

== ENCOUNTER → 2024-09-02 09:13 | Outpatient (BNVA) | payer MEDICARE, SELFPAY | PROVIDERS: PCP Internal Medicine; Visit Provider Nurse Practitioner Family | DX: J44.9 Chronic obstructive pulmonary disease, unspecified (principal); J30.9 Allergic rhinitis, unspecified; C34.12 Malignant neoplasm of upper lobe, left bronchus or lung | CPT/HCPCS: 94618; 99212 ==